=== PATIENT | male | born 1955 | race Caucasian/White ===

== ENCOUNTER → 2021-06-17 10:08 | Outpatient (CLI) | payer MEDICARE, OTHER, SELFPAY ==
--- NOTE | ~2021-06-17 | XR_ITS ---
EXAMINATION: XR toe 2nd LT min 2V INDICATION: Neuropathy with swelling of the left second toe TECHNIQUE: Three views of the left second toe are obtained. COMPARISON: 03/12/2015 FINDINGS: There is soft tissue swelling of the left second toe. No definite underlying acute osseous abnormality is identified. There is mild/moderate polyarticular arthritis of the interphalangeal join ts. No fracture is identified. IMPRESSION: 1. Soft tissue swelling of the left second toe without definite acute underlying osseous abnormality. Reviewed, dictated and finalized at location A. IMPRESSION: 1. Soft tissue swelling of the left second toe without definite acute underlyin g osseous abnormality.
== END ==
PROVIDERS: PCP Family Medicine Adolescent Medicine; Visit Provider Family Medicine Adolescent Medicine
DX: M79.89 Other specified soft tissue disorders (principal)
CPT/HCPCS: 73660

== ENCOUNTER → 2022-02-10 07:42 | Outpatient (CLI) | payer MEDICARE, SELFPAY ==
--- NOTE | ~2022-02-10 | US_ITS ---
EXAMINATION: US renal BI DATE: 02/10/2022 08:14 INDICATION: Chronic kidney disease TECHNIQUE: Multiple grayscale and Doppler ultrasound images of the kidneys were obtained. COMPARISON: 03/03/2015; CT, 03/16/2019 FINDINGS: The right kidney measures 12.7 x 7.0 x 6.7 cm. The left kidney measures 13.1 x 7.6 x 7.3 cm and contains a 5.6 cm cyst. The kidneys demonstrate normal parenchymal echogenicity. There is no hyd ronephrosis. The bladder is normal. IMPRESSION: 1. Unremarkable kidneys without hydronephrosis. Reviewed, dictated and finalized at location A.
== END ==
PROVIDERS: PCP Family Medicine Adolescent Medicine; Visit Provider Internal Medicine Nephrology
DX: N18.31 Chronic kidney disease, stage 3a (principal)
CPT/HCPCS: 76775

== ENCOUNTER 2022-02-18 02:27 | Day surgery (SDC) | payer MEDICARE, SELFPAY ==
[2022-01-15 14:38] VITALS: BMI 36.2
[2022-02-11 15:48] VITALS: BMI 36.2
[2022-02-18 11:05] VITALS: BP 183/96; PULSE 97; RESP 18; TEMP 36.4; O2SAT 99; BMI 35.4
--- NOTE | 2022-02-18 11:20 | PM.IMHP ---
H&P: HPI History of Present Illness Date/Time: 02/18/22 11:20 Chief Complaint: Neoplasia screening Narrative: this is a 66-year-old white male patient presents for neoplasia screening colonoscopy. Patient reports his current weight appetite and bowel movements are normal. He denies abdominal pain. He has had no bleeding. Last colonoscopy 10 years ago was unremarkable. Patient has been identified as having several inguinal hernias. Patient's family history is noncontributory. Patient presents today for neoplasia screening. Review of Systems Review of Systems: review of systems noncontributory. [facility] Past Medical History Medical History Normal colonoscopy 01/02 Surgical History Surgical History History of total bilateral knee replacement 2003 Family History Family History Father Cerebrovascular accident Heart disease Hypertension Mother Heart disease Diabetes mellitus Hypertension Grandparent Breast cancer Diabetes mellitus Other Colon polyp Social History Social History Smoking status: Never smoker Second hand tobacco smoke exposure: No Alcohol intake: current Alcohol use details: rarely - once every few months Substance use: never Substance use type: does not use Living arrangements: with family Gender identity (if verbalized by the patient): Male Sexual Orientation (if Verbalized by the Patient): Straight or Heterosexual Spiritual care concerns: No Agree to blood products: Yes Meds Home Medications and Allergies Home Medications Medication Instructions Recorded Confirmed Type pravastatin 40 mg tablet 40 mg PO DAILY #90 tabs 10/25/21 02/18/22 Rx aspirin 81 mg tablet,delayed 81 mg PO DAILY 12/06/21 02/18/22 History release (Adult Low Dose Aspirin) dulaglutide 1.5 mg/0.5 mL 1.5 mg subcut WEEKLY 12/06/21 02/18/22 History subcutaneous pen injector (Trulicity) dutasteride 0.5 mg capsule 0.5 mg PO DAILY 12/06/21 02/18/22 History omeprazole 40 mg capsule,delayed 40 mg PO DAILY 12/06/21 02/18/22 History release tamsulosin 0.4 mg capsule 0.4 mg PO DAILY 12/06/21 02/18/22 History metformin 500 mg tablet 1,000 mg PO BID 12/11/21 02/18/22 History carvedilol 12.5 mg tablet 12.5 mg PO BID #180 tabs 12/12/21 02/18/22 Rx chlorthalidone 25 mg tablet 25 mg PO DAILY #90 tabs 12/12/21 02/18/22 Rx fosinopril 40 mg tablet 40 mg PO DAILY #90 tabs 12/12/21 02/18/22 Rx fenofibrate 160 mg tablet 160 mg PO DAILY 01/15/22 02/18/22 History insulin lispro protamine-lispro 62 unit subcut BID 01/15/22 02/18/22 History 100 unit/mL (50-50) subcutaneous pen (Humalog Mix 50-50 KwikPen) hydrocodone 7.5 mg-acetaminophen 1 tablet PO TID PRN pain #90 tabs 01/22/22 02/18/22 Rx 325 mg tablet baclofen 20 mg tablet 20 mg PO BID #20 tabs 02/11/22 02/18/22 Rx prednisone 10 mg tablet 40 mg PO DAILY #28 tabs 02/11/22 02/18/22 Rx Allergies Allergy/AdvReac Type Severity Reaction Status Date / Time atorvastatin AdvReac Intermediate myalgia Verified 02/18/22 11:11 celecoxib AdvReac Intermediate GI upset Verified 02/18/22 11:11 glimepiride AdvReac Intermediate Palpitation Verified 02/18/22 11:11 s pioglitazone AdvReac Intermediate Edema Verified 02/18/22 11:11 prednisone AdvReac Intermediate GI upset Verified 02/18/22 11:11 Exam Narrative: Physical exam reveals patient be alert. Vital signs stable. HEENT exam is unremarkable. Patient is anicteric. Lungs are clear to auscultation and percussion. Heart is without murmur or extra sounds. Abdomen is obese. Bowel sounds are present soft nontender with no organomegaly. Digital external rectal exam is normal. Assessment and Plan Assessment and plan (1) Encounter for screening colonoscopy: Code
[2022-02-18] MEDS: LACTATED RINGERS 1,000 ML 150 ML IV CONT (11:38)
[2022-02-18 11:41] LABS: Glucose Point of Care 234 mg/dl (65-105)
--- NOTE | 2022-02-18 11:54 | WPDANESEPPF ---
Anes - Initial Pre Proc Eval Procedure: Operation Date: 02/18/22 12:30 Proposed Procedures p Screening Colonoscopy - Victorino Bowman MD Date/Time: 02/18/22 11:54 Surgeon: Victorino Bowman MD Pre Op Diagnosis: neoplasm screening Patient Data Age: 66 Gender: M Height: 1.96 m Weight: 135.4 kg Last Vital Signs Temp 97.6 F 02/18/22 11:05 Pulse 97 02/18/22 11:05 Resp 18 02/18/22 11:05 BP 183/96 H 02/18/22 11:05 Pulse Ox 99 02/18/22 11:05 O2 Del Method Room Air 02/18/22 11:05 Allergies Allergy/AdvReac Type Severity Reaction Status Date / Time atorvastatin AdvReac Intermediate myalgia Verified 02/18/22 11:11 celecoxib AdvReac Intermediate GI upset Verified 02/18/22 11:11 glimepiride AdvReac Intermediate Palpitation Verified 02/18/22 11:11 s pioglitazone AdvReac Intermediate Edema Verified 02/18/22 11:11 prednisone AdvReac Intermediate GI upset Verified 02/18/22 11:11 Home Medications Medication Instructions Recorded Confirmed Type pravastatin 40 mg tablet 40 mg PO DAILY #90 tabs 10/25/21 02/18/22 Rx aspirin 81 mg tablet,delayed 81 mg PO DAILY 12/06/21 02/18/22 History release (Adult Low Dose Aspirin) dulaglutide 1.5 mg/0.5 mL 1.5 mg subcut WEEKLY 12/06/21 02/18/22 History subcutaneous pen injector (Trulicity) dutasteride 0.5 mg capsule 0.5 mg PO DAILY 12/06/21 02/18/22 History omeprazole 40 mg capsule,delayed 40 mg PO DAILY 12/06/21 02/18/22 History release tamsulosin 0.4 mg capsule 0.4 mg PO DAILY 12/06/21 02/18/22 History metformin 500 mg tablet 1,000 mg PO BID 12/11/21 02/18/22 History carvedilol 12.5 mg tablet 12.5 mg PO BID #180 tabs 12/12/21 02/18/22 Rx chlorthalidone 25 mg tablet 25 mg PO DAILY #90 tabs 12/12/21 02/18/22 Rx fosinopril 40 mg tablet 40 mg PO DAILY #90 tabs 12/12/21 02/18/22 Rx fenofibrate 160 mg tablet 160 mg PO DAILY 01/15/22 02/18/22 History insulin lispro protamine-lispro 62 unit subcut BID 01/15/22 02/18/22 History 100 unit/mL (50-50) subcutaneous pen (Humalog Mix 50-50 KwikPen) hydrocodone 7.5 mg-acetaminophen 1 tablet PO TID PRN pain #90 tabs 01/22/22 02/18/22 Rx 325 mg tablet baclofen 20 mg tablet 20 mg PO BID #20 tabs 02/11/22 02/18/22 Rx prednisone 10 mg tablet 40 mg PO DAILY #28 tabs 02/11/22 02/18/22 Rx Laboratory Tests 02/18/22 11:31 POC Capillary Glucose 234 mg/dl H mg/dl (65-105) Patient hx anesthesia problems: none Family hx anesthesia problems: none Results Review: All pre-operative results and documents have been reviewed as part of the pre-operative evaluation. [facility], [facility] Past Medical History Medical History Normal colonoscopy 01/02 Surgical History Surgical History History of total bilateral knee replacement 2003 Family History Family History Father Cerebrovascular accident Heart disease Hypertension Mother Heart disease Diabetes mellitus Hypertension Grandparent Breast cancer Diabetes mellitus Other Colon polyp Social History Social History Smoking status: Never smoker Second hand tobacco smoke exposure: No Alcohol intake: current Alcohol use details: rarely - once every few months Substance use: never Substance use type: does not use Living arrangements: with family Gender identity (if verbalized by the patient): Male Sexual Orientation (if Verbalized by the Patient): Straight or Heterosexual Spiritual care concerns: No Agree to blood products: Yes Anes - Eval Final PreProcedure Day of Procedure 02/18/22 11:54 Patient weight: obese Heart: irregular rhythm Lungs: clear to auscultation Airway: Mallampati scale class III Neurological: alert and oriented Last oral intake: >/= 8 hours ASA classification: III Emergent: no A
[2022-02-18 12:11] VITALS: BP 121/70; PULSE 91; RESP 36; O2SAT 98
[2022-02-18 12:21] VITALS: BP 137/76; PULSE 82; RESP 19; O2SAT 100
[2022-02-18 12:31] VITALS: BP 142/70; PULSE 73; RESP 14; O2SAT 99
== END 2022-02-18 12:39 | disposition home or self-care (01) ==
PROVIDERS: PCP Family Medicine Adolescent Medicine; Visit Provider Internal Medicine Gastroenterology
PROC: 0DJD8ZZ Inspection of Lower Intestinal Tract, Via Natural or Artificial Opening Endoscopic (ICD-10-PCS; CPT 45378; principal; 2022-02-18 12:30)
DX: Z12.11 Encounter for screening for malignant neoplasm of colon (principal); K64.8 Other hemorrhoids; K57.30 Diverticulosis of large intestine without perforation or abscess without bleeding; Z79.82 Long term (current) use of aspirin; Z79.899 Other long term (current) drug therapy; Z79.84 Long term (current) use of oral hypoglycemic drugs; Z79.4 Long term (current) use of insulin; Z79.891 Long term (current) use of opiate analgesic; E66.9 Obesity, unspecified; Z68.35 Body mass index [BMI] 35.0-35.9, adult
CPT/HCPCS: G0121; 82948; J2704; J7120

== ENCOUNTER → 2022-10-30 08:09 | Outpatient (CLI) | payer MEDICARE, SELFPAY ==
--- NOTE | ~2022-10-30 | US_ITS ---
Abdominal Sonogram: Real-time sonographic imaging of the abdomen was performed. Clinical History: Abdominal pain Findings: Much of the liver obscured by bowel gas shadowing. Poor visualization of the portal vein. T he spleen is borderline enlarged. The gallbladder is probably partially distended, poorly visualized . Suspected small layering gallstones. The common bile duct measures 5 mm. The pancreas, aorta, and IVC are obscured by bowel gas shadowing. The right kidney measures 9.9 cm in length and the left kid marcos measures 11.9 cm. There is no hydronephrosis or renal calculus. Impression: Limited exam due to extensive bowel gas shadowing/patient body habitus. Suspected gallstones. Nearly nondiagnostic evaluation of the liver, as well as of the retroperitoneal structures. Reviewed, dictated and finalized at [facility]. [facility] Impression: Limited exam due to extensive bowel gas shadowing/patient body habitus. Suspected gallstones. Nearly nondiagnostic evaluation of the liver, as well as of the retroperitoneal structures.
== END ==
PROVIDERS: PCP Family Medicine Adolescent Medicine; Visit Provider Family Medicine Adolescent Medicine
DX: R10.811 Right upper quadrant abdominal tenderness (principal)
CPT/HCPCS: 76700

== ENCOUNTER 2023-01-22 12:25 | Outpatient (CLI) | payer MEDICARE, SELFPAY ==
--- NOTE | ~2023-01-22 | XR_ITS ---
EXAMINATION: XR lumbar spine 2-3V DATE: 01/22/2023 12:45 INDICATION: Low back pain TECHNIQUE: Anteroposterior and lateral views of the lumbar spine, and cone-down lateral view of the l umbosacral junction were obtained. COMPARISON: CT, 03/16/2019 FINDINGS: There are 20 degrees of lumbar levoscoliosis. Anterior interbody fusion is again noted. L3- 4. There is severe loss of intervertebral disc space height at L1-2, L4-5, and L5-S1. There is no fra cture. The vertebral body heights are maintained. There is severe facet joint osteoarthritis througho ut the lumbar spine. IMPRESSION: 1. Severe lumbar spondylosis without acute findings or significant interval change. Reviewed, dictated and finalized at location L. IMPRESSION: 1. Severe lumbar spondylosis without acute findings or significant interval tutu emelye.
--- NOTE | ~2023-01-22 | US_ITS ---
EXAMINATION: US venous doppler LE RT DATE: 01/22/2023 13:00 INDICATION: Right lower limb edema. TECHNIQUE: Grayscale ultrasound images without and with compression and Doppler ultrasound images of the right lower extremity veins were obtained. COMPARISON: None. FINDINGS: The visualized portions of right common femoral vein, profunda (deep) femoral vein, femoral vein, pop liteal vein, peroneal veins, posterior tibial veins, and greater saphenous vein outflow are patent. IMPRESSION: 1. No deep venous thrombosis. Reviewed, dictated and finalized at location A.
== END 2023-01-22 12:26 | disposition home or self-care (01) ==
LOC: ANHIMG 12:28
PROVIDERS: PCP Family Medicine Adolescent Medicine; Visit Provider Family Medicine Adolescent Medicine
DX: R60.0 Localized edema (principal); M47.896 Other spondylosis, lumbar region
CPT/HCPCS: 72100; 93971

== ENCOUNTER 2023-03-11 09:00 | Outpatient (CLI) | payer MEDICARE, SELFPAY ==
--- NOTE | ~2023-03-11 | US_ITS ---
Abdominal Sonogram: Real-time sonographic imaging of the abdomen was performed. Clinical History: IgM deficiency Findings: The liver appears echogenic, with no evidence of mass lesion or bile duct dilatation. Main portal vein demonstrates normal direction of flow. The spleen is upper limits of normal in size with out evidence of focal lesion. The gallbladder is poorly imaged. Suggestion of small gallstones. The common bile duct measures 4 mm. The pancreas, aorta, and IVC are obscured by bowel gas shadowing. T he right kidney measures 11.30 cm in length and the left kidney measures 12.6 cm. There is no hydron ephrosis or renal calculus. Left renal cyst present. Impression: Poor visualization of gallbladder, but there is suggestion of small gallstones. Probable diffuse fatty infiltration of liver. Reviewed, dictated and finalized at [facility]. Impression: Poor visualization of gallbladder, but there is suggestion of small gallstones. Probable diffuse fatty infiltration of liver.
== END 2023-03-11 09:01 | disposition home or self-care (01) ==
PROVIDERS: PCP Family Medicine Adolescent Medicine; Visit Provider Internal Medicine Hematology & Oncology
DX: D80.4 Selective deficiency of immunoglobulin M [IgM] (principal)
CPT/HCPCS: 76700

== ENCOUNTER 2023-09-28 09:28 | Outpatient (CLI) | payer MEDICARE, SELFPAY ==
[2023-09-28 09:48] LABS: Basophils Absolute Auto 0.1 K/mm3 (0.0-0.1); Basophils Percent Auto 0.8 % (0.2-1.2); Eosinophils Absolute Auto 0.1 K/mm3 (0-0.3); Eosinophils Percent Auto 1.8 % (0-4.4); Hematocrit 38.9 % (42.0-52.0); Hemoglobin 13.5 g/dL (14.0-18.0); Immature Granulocyte Absolute 0.01 K/mm3 (0.00-0.031); Immature Granulocyte Percent A 0.2 % (0-0.5); Lymphocytes Absolute Auto 1.42 K/mm3 (0.9-3.2); Lymphocytes Percent Auto 21.6 % (18.3-44.2); Mean Corpuscular HGB Conc 34.7 g/dl (32-36); Mean Corpuscular Hemoglobin 30.6 pg (26-34); Mean Corpuscular Volume 88.2 fl (80-100); Mean Platelet Volume 8.8 fl (7.4-10.4); Monocytes Absolute Auto 0.5 K/mm3 (0.1-0.6); Monocytes Percent Auto 7.9 % (2.6-8.5); Neutrophils Absolute Auto 4.5 K/mm3 (1.3-6.7); Neutrophils Percent Auto 67.7 % (45.5-73.1); Platelet Count Result 214 k/mm3 (150-375); Red Blood Count 4.41 M/mm3 (4.6-6.20); Red Cell Distribution Width 12.6 % (11.5-14.5); White Blood Count 6.6 K/mm3 (4.5-10.0)
[2023-09-28 09:54] LABS: Blood Urea Nitrogen 18 mg/dL (8-26); Carbon Dioxide 26 mmol/L (22-30); Chloride 98 mmol/L (98-109); Estimated Glomerular Filt Rate 40; Glucose 243 mg/dL (70-105); Ionized Calcium (POC) 1.16 mmol/L (1.11-1.31); Potassium 3.8 mmol/L (3.5-4.9); Sodium 138 mmol/L (138-146)
[2023-09-28 10:21] LABS: Alanine Aminotransferase 17 U/L (6-50); Albumin Level 3.8 g/dL (3.5-5.1); Alkaline Phosphatase 64 U/L (38-126); Anion Gap 8 mmol/L (8-16); Aspartate Amino Transferase 29 U/L (17-59); Bilirubin,Total 0.8 mg/dL (0.2-1.3); Blood Urea Nitrogen 19 mg/dL (9-20); Calcium 8.9 mg/dL (8.4-10.2); Carbon Dioxide 27 mmol/L (22-30); Chloride 100 mmol/L (98-107); Estimated Glomerular Filt Rate 43; Glucose 245 mg/dL (65-110); Potassium 3.8 mmol/L (3.4-5.0); Sodium 135 mmol/L (137-145)
== END 2023-09-28 09:29 | disposition home or self-care (01) ==
LOC: ANHLAB 09:30
PROVIDERS: PCP Family Medicine Adolescent Medicine; Visit Provider Internal Medicine Hematology & Oncology
DX: D80.4 Selective deficiency of immunoglobulin M [IgM] (principal)
CPT/HCPCS: 36415; 80047; 80053; 85025

== ENCOUNTER 2024-09-29 09:38 | Outpatient (CLI) | payer MEDICARE, SELFPAY ==
--- OUTSIDE RECORDS SUMMARY | 2024-09-29 09:47 | XMS_ITS | Clinical Summary ---
Author Organization [facility] Address [address] [place] [phone] Phone Care Team Providers Care Tooling Specialist Name Role Phone Magno Marr MD Primary Care Provider [phone] Allergies Active Allergy Reactions Criticality Noted Date Comments Baclofen nausea High 03/06/2022 Canagliflozin Headache Low 02/02/2020 Prednisone nausea High 03/06/2022 Medications Medication Sig Dispensed Refills Start Date End Date Status ascorbic acid (VITAMIN C) 1000 MG tablet Take 1,000 mg by mouth daily Active aspirin (ST JARON) 81 MG EC tablet 81 mg 06/15/2007 Active Blood Glucose Calibration (OT ULTRA/FASTTK CNTRL SOLN) solution Use to test blood sugars 3 times a day 09/07/2018 Active Blood Glucose Monitoring Suppl (ONE TOUCH ULTRA MINI) w/Device kit Use to test blood sugars 3 times a day 09/07/2018 Active Cholecalciferol 50 MCG (1999 UT) capsule 2,000 Units Active coenzyme Q-10 100 MG capsule Take 100 mg by mouth daily Active Dulaglutide (Trulicity) 1.5 MG/0.5ML solution pen-injector INJECT 0.5-ML (1.5 MG TOTAL) UNDER THE SKIN ONCE A WEEK 12/18/2021 Active dutasteride (AVODART) 0.5 MG capsule Take 0.5 mg by mouth daily Active fenofibrate (Tricor) 145 MG tablet 145 mg 06/29/2007 Active glucose blood (OneTouch Ultra) test strip USE DIRECTED TO TEST BLOOD SUGAR THREE TIMES DAILY 12/03/2021 Active HYDROcodone-acetami nophen (NORCO) 7.5-325 MG per tablet Take 1 tablet by mouth 3 (three) times a day if needed for pain 12/27/2021 Active HumaLOG MIX 50/50 KWIKPEN (50-50) 100 UNIT/ML inj pen ADMINISTER 62 UNITS UNDER THE SKIN TWICE DAILY BEFORE BREAKFAST AND LUNCH 01/01/2022 Active Insulin Pen Needle (B-D ULTRAFINE III SHORT PEN) 31G X 8 MM misc 2 (two) times a day 10/10/2020 Active Lancets (OneTouch Delica Plus [id number]) misc USE TO TEST THREE TIMES DAILY 04/08/2021 Active metFORMIN (FORTAMET) 500 MG 24 hr tablet Take two tablets twice daily. 11/14/2021 Active omeprazole (PriLOSEC) [address] capsule Take 40 mg by mouth daily Active pravastatin (PRAVACHOL) 40 MG tablet Take 40 mg by mouth 1 (one) time each day 10/24/2021 Active tamsulosin (FLOMAX) 0.4 MG 24 hr capsule 0.4 mg daily Active thiamine (VITAMIN B-1) 100 MG tablet Take 100 mg by mouth daily Active carvedilol (COREG) 12.5 MG tablet Take 1 tablet (12.5 mg total) by mouth 2 (two) times a day with meals 180 tablet 3 01/27/2022 Active fosinopril (MONOPRIL) 40 MG tablet Take 1 tablet (40 mg total) by mouth 1 (one) time each day 90 tablet 3 06/16/2022 Active chlorthalidone (HYGROTON) 50 MG tablet Take 1 tablet (50 mg total) by mouth 1 (one) time each day 90 tablet 3 07/30/2022 Active Active Problems Problem Noted Date Diagnosed Date Chronic kidney disease stage 3A 07/30/2022 Hyperlipidemia 01/28/2018 Overview (01/22/2022): Last Assessment & Plan: Chronic problem. On statin therapy, no changes. Hypertensive disorder 01/28/2018 Overview (01/22/2022): Last Assessment & Plan: Not at goal on recheck also. He is supposed to meet with nephrology in 1-2 weeks and they have historically managed. If this appointment gets canceled, then he will let us know and we will adjust his medications until he can get into a new kidney doctor. Probably will add low dose amlodipine if this is the case. Type 2 diabetes mellitus 01/07/2014 Overview (01/22/2022): DMII WO CMP UNCNTRLD Last Assessment & Plan: Chronic problem, not at goal due to missing medications. Prescriptions updated and sent today, let us know if any further issues. He will work on taking aD HL dose consistently. Reviewed foot care. Update routine labs today. Immunizations Name Administration Dates Next Due Influenza TIV (IM) 06/17/2022 Pneumococcal Conjugate 11/04/2019 Family History Medical History Relation Comments End stage renal disease Mother Relation Status Comments Mother Social History Tobacco Use Types Packs/Day Years Used Date Smoking Tobacco: Never Smokeless Tobacco: Never Alcohol Use Standard Drinks/Week Comments Yes 0 (1 standard drink = 0.6 oz pur e alcohol) rare Sex and Gender Information Value Date Recorded Sex Assigned at Not on file Gender Identity Not on file Sexual Orientation Not on file Last Filed Vital Signs Vital Sign Reading Time Taken Comments Blood Pressure 136/70 07/30/2022 8:43 AM DOCUMENTATION NURSE Pulse 72 07/30/2022 8:43 AM DOCUMENTATION NURSE Temperature 36.8 C (98.2 F) 07/30/2022 8:43 AM DOCUMENTATION NURSE Respiratory Rate - - Oxygen Saturation - - Inhaled Oxygen Concentration - - Weight 138 kg (305 lb) 07/30/2022 8:43 AM DOCUMENTATION NURSE Height 195.6 cm (6' 5 ) 07/30/2022 8:43 AM DOCUMENTATION NURSE Body Mass Index 36.17 07/30/2022 8:43 AM DOCUMENTATION NURSE Plan of Treatment Health Maintenance Due Date Last Done Comments Pneumococcal PPSV23/PCV13 65 + Years / High and Highest Risk (1 of 4 - PCV) 11/28/1959 Diabetic Foot Exam 11/28/1963 Ophthalmology Exam 11/28/1963 Influenza Vaccine (#1) 2024 06/17/2022 Care Teams Tooling Specialist Relationship Specialty Start Date End Date Magno Marr MD [phone] [phone] PCP - General Family Medicine 12/12/21
--- OUTSIDE RECORDS SUMMARY | 2024-09-29 09:47 | XMS_ITS | Referral Summary ---
Author Organization [id number] [address] Address [address] [place] [address] Care Team Providers Care Account Development Manager Name Role Phone Magno Thompson MD Primary Care Prov ider Jaci Dickinson MD Unavailable Khang Robledo OD Unavailable [phone] Victorino Richter OD Unavailable Allergies Active Allergy Reactions Criticality Noted Date Comments Baclofen Nausea only,Nausea A nd Vomiting High 03/06/2022 Canagliflozin Headache Low 02/02/2020 Perflutren Lipid Microspheres Joint pain Low 01/28/2024 Prednisone Nausea only,Nausea A nd Vomiting High 03/06/2022 Rosuvastatin Muscle pain Medium 06/06/2024 Weakness Medications fosinopril (MONOPRIL) 40 mg tablet Take one by mouth one time per day 0 0 06/29/20 07 Active Additional Information Patient taking differently:40 mgoral, 1/2 tab in the morning and 1/2 tab in the evening, Reported on 06/22/2023 aspirin (ASPIR-81) 81 mg tablet Take one by mouth one time per day 0 0 06/15/20 07 Active dutasteride (AVODART) 0.5 mg capsuleIndicati ons:benign prostatic hyperplasia with lower urinary tract sx Take 1 capsule (0.5 mg total) by mouth daily Active tamsulosin (FLOMAX) 0.4 mg extended release capsule 1 capsule (0.4 mg total) daily Active omeprazole (PriLOSEC) 40 mg capsule Take 1 capsule (40 mg total) by mouth daily Active cholecalciferol (VITAMIN D-3) 2,000 unit capsule 1 capsule (2,000 Units total) Active coenzyme Q10 100 mg capsule Take 1 capsule (100 mg total) by mouth daily Active thiamine (VITAMIN B1) 100 mg tablet Take 1 tablet (100 mg total) by mouth daily Active HYDROcodone-kavon taminophen (NORCO) 7.5-325 mg per tabletIndicatio ns:Pain Take 1 tablet by mouth every 8 (eight) hours as needed 0 04/29/20 18 Active fenofibrate (TRIGLIDE) 160 mg tablet 09/07/19 22 Active carvediloL (COREG) 25 mg tablet Take 0.5 tablets (12.5 mg total) by mouth 2 (two) times a day with meals 08/21/20 22 Active chlorthalidone 50 mg tablet 07/30/20 22 Active ketoconazole (NIZORAL) 2 % cream APPLY TOPICALLY TO THE AFFECTED AREA TWICE DAILY 03/24/20 23 Active multivitamin-mi nerals-lutein tablet Take 1 tablet by mouth daily Active coenzyme [id number] 100-5 mg-unit capsule Take 100 mg by mouth daily Active insulin lispro protamine-insul in lispro 50/50 (HumaLOG 50/50 100 unit/mL) 100 unit/mL pen for injectionIndica tions:Type 2 diabetes mellitus with hyperglycemia, with long-term current use of insulin (HCC) INJECT 55 UNITS BEFORE BREAKFAST & 35 UNITS BEFORE DINNE 105 mL 3 08/13/20 23 Active dulaglutide (TRULICITY) 1.5 mg/0.5 mL pen injectorIndicat ions:type 2 diabetes mellitus Inject 0.5 mL (1.5 mg total) under the skin once a week 6 mL 3 02/16/20 24 025 Active flash glucose sensor (FreeStyle Gabi 2 Sensor) kit CHANGE SENSOR EVERY 2 WEEKS 6 kit 3 02/22/20 24 Active atorvastatin (LIPITOR) 20 mg tablet Take 1 tablet (20 mg total) by mouth daily 06/06/20 24 Active chlorthalidone (HYGROTON) 25 mg tablet Take 2 tablets (50 mg total) by mouth daily 06/14/20 24 Active metFORMIN XR (GLUCOPHAGE XR) 500 mg 24 hr tabletIndicatio ns:Type 2 diabetes mellitus with hyperglycemia, with long-term current use of insulin (HCC) TAKE TWO TABLETS BY MOUTH TWICE DAILY 360 tablet 3 09/26/19 25 Active metFORMIN XR (GLUCOPHAGE XR) 500 mg 24 hr tablet TAKE TWO TABLETS BY MOUTH TWICE DAILY 360 tablet 3 08/26/19 24 025 Discontinued Active Problems Problem Noted Date Diagnosed Date Class 2 severe obesity due t o excess calories with serious comorbidity and body mass index (BMI) of 35.0 to 35.9 in adult 02/16/2024 Assessment & Plan (02/16/2024 9:47 AM CDT): Discussed healthy diet and importance of regular physical activity (20- 30min/day, 150min/wk). Has been unable to obtain his Trulicity in 1 mo. Sent in lower dose. Chronic kidney disease in type 2 diabetes [facility] 06/22/2023 Assessment & Plan (06/14/2024 9:50 AM CDT): Chronic problem. Managed by Dr Cruz Wu; sees him every 6 mos. Nephropathy: On KAVON-I / ARB s : Yes. Fosinopril 20mg bid. Last MA: 07/22/23 Last creat/GFR: 07/22/23 GFR=44, CR=1.67 Assessment & Plan (02/16/2024 10:09 AM CDT): Chronic problem. Managed by Dr Cruz Wu; sees him every 6 mos. JUN 3002/2024. Last creat/GFR: 07/22/23 GFR=44, CR=1.67. Assessment & Plan (10/12/2023 9:52 AM DATA REVIEW SPECIALIST): Chronic problem. Managed by Dr Cruz Wu; sees him every 6 mos. Last creat/GFR: 07/22/23 GFR=44, CR=1.67. Assessment & Plan (06/22/2023 10:31 AM CDT): Chronic problem. Managed by Dr Cruz Wu. Morbid (severe) obesity due to excess calories 0 09/09/2022 Hyperlipidemia associated with type 2 diabetes deanne soriano 01/28/2018 Assessment & Plan (06/14/2024 9:58 AM CDT): Chronic problem. Currently taking Atorvastatin 20mg & fenofibrate 160mg. Last lipid panel: 07/22/23 LDL=81, TY=562. Rosuvastatin caused muscle weakness. Assessment & Plan (02/16/2024 9:58 AM CDT): Chronic problem. Currently taking Rosuvastatin 20mg & fenofibrate 160mg. Last lipid panel: 07/22/23 LDL=81, ED=364. Assessment & Plan (10/12/2023 9:37 AM DATA REVIEW SPECIALIST): Chronic problem. Currently taking Pravastatin 40mg & fenofibrate 160mg. Last lipid panel: 07/22/23 LDL=81, AS=815. Assessment & Plan (06/22/2023 10:17 AM CDT): Chronic problem. Controlled on current Pravastatin 40mg & fenofibrate 160mg. Last lipid panel: 03/06/22 LDL=69, UL=488. Will update labs. Verified that he uses [employer]. Aware to check results/results letter in [employer]. Will contact by phone if needed. Assessment & Plan (09/09/2022 10:39 AM DATA REVIEW SPECIALIST): Chronic, well controlled Low fat Low cholesterol diet Exercise Continue statin therapy with Pravastatin Assessment & Plan (06/05/2022 9:45 AM CDT): Chronic problem. On statin therapy, no changes. Assessment & Plan (03/06/2022 1:50 PM CDT): Chronic problem. On statin therapy, no changes. Assessment & Plan (11/14/2021 11:53 AM CDT): Chronic problem. On statin therapy, no changes. Assessment & Plan (04/11/2021 9:43 AM CDT): At goal on current medications. Continue statin therapy. Assessment & Plan (12/13/2020 9:48 AM CDT): LDL 88. Continue statin therapy. Assessment & Plan (08/09/2020 1:41 PM DATA REVIEW SPECIALIST): Goal of treatment , LDL cholesterol less than 100 ( less than 70 in patients with history of heart attacks and / or strokes ) NonHDL cholesterol ( total cholesterol minus HDL cholesterol ) goal less than 130 ( less than 100 in patients with history of heart attacks and / or strokes ) Low cholesterol, low fat diet was discussed and advised. Daily exercise On statin therapy Assessment & Plan (05/03/2020 2:24 PM CDT): At goal on current medications. Continue statin therapy. Assessment & Plan (02/02/2020 1:50 PM CDT): Continue current medication. Will check lipids NOV. Needs to be compliant with diet as well. Assessment & Plan (09/27/2019 12:26 PM DATA REVIEW SPECIALIST): Goal of treatment , LDL cholesterol less than 100 ( less than 70 in patients with history of heart attacks and / or strokes ) NonHDL cholesterol ( total cholesterol minus HDL cholesterol ) goal less than 130 ( less than 100 in patients with history of heart attacks and / or strokes ) Low cholesterol, low fat diet was discussed and advised. Daily exercise On statin therapy and Gemfibrozil Assessment & Plan (05/24/2019 11:25 AM CDT): Goal of treatment , LDL cholesterol less than 100 ( less than 70 in patients with history of heart attacks and / or strokes ) NonHDL cholesterol ( total cholesterol minus HDL cholesterol ) goal less than 130 ( less than 100 in patients with history of heart attacks and / or strokes ) Low cholesterol, low fat diet was discussed and advised. Daily exercise On statin therapy with Pravachol Assessment & Plan (02/18/2019 2:56 PM CDT): Check lipid panel. Assessment & Plan (11/18/2018 1:23 PM CDT): Goal of treatment , LDL cholesterol less than 100 ( less than 70 in patients with history of heart attacks and / or strokes ) NonHDL cholesterol ( total cholesterol minus HDL cholesterol ) goal less than 130 ( less than 100 in patients with history of heart attacks and / or strokes ) Low cholesterol, low fat diet was discussed and advised. Daily exercise On statin therapy Assessment & Plan (08/18/2018 3:11 PM DATA REVIEW SPECIALIST): At goal on current medications. Assessment & Plan (05/13/2018 3:23 PM CDT): Continue statin therapy Assessment & Plan (01/28/2018 10:44 AM CDT): Goal of treatment , LDL cholesterol less than 100 ( less than 70 in patients with history of heart attacks and / or strokes ) NonHDL cholesterol ( total cholesterol minus HDL cholesterol ) goal less than 130 ( less than 100 in patients with history of heart attacks and / or strokes ) Low cholesterol, low fat diet was discussed and advised. Daily exercise On statin therapy Hypertension associated with diabetes 01/28/2018 Assessment & Plan (06/14/2024 9:50 AM CDT): Chronic problem. Controlled on current Fosinopril 20mg bid, carvedilol 25mg bid, chlorthalidone 50mg daily Assessment & Plan (02/16/2024 9:37 AM CDT): Chronic problem. Controlled on current Fosinopril 20mg bid, carvedilol 25mg bid, chlorthalidone 50mg daily Assessment & Plan (10/12/2023 9:38 AM DATA REVIEW SPECIALIST): Chronic problem. Controlled on current Fosinopril 20mg bid, carvedilol 25mg bid, chlorthalidone 50mg daily Assessment & Plan (06/22/2023 10:16 AM CDT): Chronic problem. Controlled on current Fosinopril 20mg bid, carvedilol 25mg bid, chlorthalidone 50mg daily Will update labs. Verified that he uses [employer]. Aware to check results/results letter in [employer]. Will contact by phone if needed. Assessment & Plan (09/09/2022 10:39 AM DATA REVIEW SPECIALIST): Chronic, well controlled Importance of low salt diet and exercise were discussed Continue current meds, including Fosinopril Assessment & Plan (06/05/2022 9:53 AM CDT): Chronic problem, improved on recheck. No medication changes. Assessment & Plan (03/06/2022 1:59 PM CDT): Close to goal, and being managed by new sheet metal operator. No changes. Assessment & Plan (11/14/2021 11:53 AM CDT): Not at goal on recheck also. He is supposed to meet with nephrology in 1-2 weeks and they have historically managed. If this appointment gets canceled, then he will let us know and we will adjust his medications until he can get into a new kidney doctor. Probably will add low dose amlodipine if this is the case. Assessment & Plan (04/11/2021 9:44 AM CDT): Controlled on current medications. Continue plan. Assessment & Plan (12/13/2020 9:47 AM CDT): Advised to take meds once home. Monitor home BP. Goals reviewed. Assessment & Plan (08/09/2020 1:41 PM DATA REVIEW SPECIALIST): Goal blood pressure is less than 140/85 Low salt diet was discussed andd recommended The importance of daily aerobic exercise was also emphasized. Continue current meds, including KAVON-I or ARB, e.g. Needs microalbumin Assessment & Plan (05/03/2020 2:24 PM CDT): Controlled on current medications. Continue plan. Assessment & Plan (02/02/2020 1:50 PM CDT): Controlled on current medications. Continue plan. Assessment & Plan (09/27/2019 12:27 PM DATA REVIEW SPECIALIST): Goal blood pressure is less than 140/85 Low salt diet recommended Daily aerobic exercise Continue current meds, including KAVON-I or ARB Invokana might help also with BG lowering. Assessment & Plan (05/24/2019 11:25 AM CDT): Goal blood pressure is less than 140/85 Low salt diet recommended Daily aerobic exercise Continue current meds, including KAVON-I or ARB Assessment & Plan (02/18/2019 2:56 PM CDT): Controlled on current medications. Assessment & Plan (08/18/2018 3:11 PM DATA REVIEW SPECIALIST): Controlled on current medications. Assessment & Plan (05/13/2018 3:23 PM CDT): Continue follow up with Dr. Madrid. Check occasional home BP. Assessment & Plan (01/28/2018 10:45 AM CDT): Goal blood pressure is less than 140/85 Low salt diet recommended Daily aerobic exercise Continue current meds, including KAVON-I or ARB Diabetic polyneuropathy asso ciated with type 2 diabetes mellitus ([facility]) 12/03/2017 Assessment & Plan (06/14/2024 9:50 AM CDT): Chronic problem. Aware to check feet nightly & not to go barefoot. Assessment & Plan (02/16/2024 9:38 AM CDT): Chronic problem. Aware to check feet nightly & not to go barefoot. Assessment & Plan (10/12/2023 9:38 AM DATA REVIEW SPECIALIST): Chronic problem. Aware to check feet nightly & not to go barefoot. Assessment & Plan (06/22/2023 10:29 AM CDT): Chronic problem. Aware to check feet nightly & not to go barefoot. Assessment & Plan (09/09/2022 10:39 AM DATA REVIEW SPECIALIST): Foot care discussed Assessment & Plan (01/28/2018 10:43 AM CDT): Your Hba1c today was: Lab Results Component Value Date HGBA1C 7.1 01/28/2018 meaning a 3 month average sugar of : 150 Your goal hba1c is under 7.0 to prevent superintendent container terminal diabetes complications ( eye , kidney and nerve damage ) . Your goal sugars are in the 90-130 range Daily aerobic ( walking, riding a bike, swimming ) and resistance exercises ( light weight lifting, resistance band stretching ) for at least 30 minutes is recommended If you can not walk, chair exercises is very acceptable. As little as 15-20 minutes exercise , in one or two sessions a day, is still very helpful and will help to improve your diabetes control . Eat small portion meals, no more than 1800 calories Diet Try to eat not more than than 2-3 servings of carbs ( starches ) wiith your meals. Avoid soft drinks, including regular sodas , fruit juices and sweetened tea. Drink water instead. Eat plenty of green and leafy vegetables, including salads. Take your medications regularly,including your insulin injections. Monitor your sugar levels with finger sticks regularly and keep a log sheet or book. Bring your sugar meter and /or a log book or log sheet to every office visit. Lower Humalog 50/50 To 60 u before breakfast and dinner Increase Ozempic to 1 mg weekly Assessment & Plan (12/03/2017 10:51 AM CDT): Foot care discussed Type 2 diabetes mellitus wit h hyperglycemia, with long-term current use of insulin 01/07/2014 Overview (2016): DMII WO CMP UNCNTRLD Assessment & Plan (06/14/2024 9:57 AM CDT): Chronic problem. A1c improved from 7.7% 02/16/24 to now 7.3%. persistent highs during daytime hours. -Increase morning humalog from 55 to 60 units. Current medications: Metformin XR 1000mg twice daily with meals Trulicity 1.5 mg weekly Humalog 50/50 60units every morning & 35 units after dinner UTD on labs. UTD on DM eye exam (08/2023 [facility]). Strive for regular exercise (30min most days) and diet (get at least 4-5 servings of fruit and veggies daily, avoid processed foods, increase lean protein intake and decrease carb portions as well as fruit juices, regular soda & desserts). Watch carbs and simple sugars. Check the blood sugar: Freestyle gabi 2. Check the feet daily for skin breakdown and infection. Assessment & Plan (02/16/2024 9:57 AM CDT): Chronic problem. A1c worsened from 7.2% 10/12/23 to now 7.6% has been unable to obtain Trulicity since 01/08/24. Will send in lower dose (1.5mg weekly) as that should be in stock. He will call if unable to obtain. Current medications: Metformin 1000mg twice daily with meals Trulicity 1.5mg weekly Humalog 50/50 55 units every morning & 35 units after dinner UTD on labs. UTD on DM eye exam (08/2023 [facility]). Strive for regular exercise (30min most days) and diet (get at least 4-5 servings of fruit and veggies daily, avoid processed foods, increase lean protein intake and decrease carb portions as well as fruit juices, regular soda & desserts). Watch carbs and simple sugars. Check the blood sugar: Freestyle gabi 2. Check the feet daily for skin breakdown and infection. Assessment & Plan (10/12/2023 9:57 AM DATA REVIEW SPECIALIST): Chronic problem. A1c near goal; improved from 7.6% 06/22/23 to now 7.2% Not enough data on FSL to look at. Instructed to scan before bed, when he gets up & before meals. Showed him download & lack of data. Current medications: Metformin 1000mg twice daily with meals Trulicity 1.5 or 3mg weekly Humalog 50/50 55 units every morning & 35 units after dinner UTD on labs. UTD on DM eye exam (08/2023 [facility]). Scheduled again 11/2023. Strive for regular exercise (30min most days) and diet (get at least 4-5 servings of fruit and veggies daily, avoid processed foods, increase lean protein intake and decrease carb portions as well as fruit juices, regular soda & desserts). Watch carbs and simple sugars. Check the blood sugar: Freestyle gabi 2. Check the feet daily for skin breakdown and infection. Assessment & Plan (06/22/2023 10:34 AM CDT): Chronic problem. A1c near goal at 7.6%; increased from 7.3% 08/2022 Discussed increasing morning dose every week if blood sugar staying over 150. 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 Current medications: Metformin 1000mg twice daily with meals Trulicity 1.5 or 3mg weekly Humalog 50/50 55 units every morning & 35 units after dinner Will update labs. Verified that he uses [employer]. Aware to check results/results letter in [employer]. Will contact by phone if needed. Please call to reschedule your diabetic eye exam. Strive for regular exercise (30min most days) and diet (get at least 4-5 servings of fruit and veggies daily, avoid processed foods, increase lean protein intake and decrease carb portions as well as fruit juices, regular soda & desserts). Watch carbs and simple sugars. Check the blood sugar twice daily. Check the feet daily for skin breakdown and infection. Assessment & Plan (09/09/2022 10:41 AM DATA REVIEW SPECIALIST): Hba1c was Lab Results Component Value Date HGBA1C 7.3 09/09/2022 today, indicating suboptimal DM control Goal Hba1c and blood glucose explained Diet and exercise were advised Prevention and treatment of hyypoglcyemia were discussed with the patient Blood glucose monitoring : cgm with FSL Adjustment to medications: Increase Trulicity 3 mg weekly Continue Humalog 50/50 at current dose Assessment & Plan (06/05/2022 9:49 AM CDT): Chronic problem, significantly improving but not at goal with hypoglycemia. Continue same morning dose but lower evening dose to 30 units. Discussed how to lower by 5 units at a time if needed for persistent lows which he's comfortable doing. Assessment & Plan (03/06/2022 1:57 PM CDT): Chronic problem, not at goal. Will try starting a lower dose of 30 units at dinner so he is comfortable taking his second dose of HL 50/50. Also start Freestyle Gabi today. Assessment & Plan (11/14/2021 12:37 PM CDT): Chronic problem, not at goal due to missing medications. Prescriptions updated and sent today, let us know if any further issues. He will work on taking aD HL dose consistently. Reviewed foot care. Update routine labs today. Assessment & Plan (04/11/2021 4:12 PM CDT): A1c 6.7. Despite not seeing hypoglycemia on past 5 months BG log, will recommend reducing insulin to 60 units twice a day. Try not to go more than 5-6 hours between meals to prevent hypoglycemia. Recommend that he take metformin at [facility] if necessary as this is on $4 list. Assessment & Plan (12/13/2020 9:50 AM CDT): A1c 6.3. No change to medication plan. Advised to eat 3 meals. No candy bars. BG goals reviewed. Foot care reviewed. Recommend follow up with manager of software development. Assessment & Plan (08/09/2020 1:42 PM DATA REVIEW SPECIALIST): Hba1c was Lab Results Component Value Date HGBA1C 6.2 08/09/2020 today, indicating Adequate DM control Goal blood sugars in the 120-150 range , with Hb1c under 7.0 % was explained 1800 calorie, consistent carb diet recommended. No more than 30-45 grams of carbs per meal recommended, as well as avoiding high concentrated sweet drinks . 25-45 min daily exercise, combining both aerobic and resistance exercise recommended. The need to monitor blood glucose before meals and bedtime was discussed. Prevention and treatment of hyypoglcyemia discussed. Assessment & Plan (05/03/2020 2:26 PM CDT): A1c 6.8. Reduce insulin to 60 units twice a day and increase Trulicity to 1.5 weekly. Advised to not skip lunch as this is contributing to reported after sx of hypoglycemia. Encouraged more compliance with diet and exercise. Assessment & Plan (02/02/2020 1:51 PM CDT): A1c increased to 7.1. He wants to work on diet and exercise. If not improved NOV, will increase Trulicity. BG and A1c goals discussed. Assessment & Plan (09/27/2019 12:26 PM DATA REVIEW SPECIALIST): Hba1c was Lab Results Component Value Date HGBA1C 6.8 09/27/2019 today, indicating adequate DM control 1800 calorie, consistent carb diet recommended. No more than 30-45 grams of carbs per meal recommended, as well as avoiding high concentrated sweet drinks . 25-45 min daily exercise, combining both aerobic and resistance exercise recommended. The need to monitor blood glucose before meals and bedtime was discussed. Prevention and treatment of hyypoglcyemia discussed. Start Invokana Lower Humalog 50/50 if BG start dropping under 100 Assessment & Plan (05/24/2019 11:25 AM CDT): Hba1c was Lab Results Component Value Date HGBA1C 7.5 05/24/2019 today, indicating sub-optimal DM control 1800 calorie, consistent carb diet recommended. No more than 30-45 grams of carbs per meal recommended, as well as avoiding high concentrated sweet drinks . 25-45 min daily exercise, combining both aerobic and resistance exercise recommended. The need to monitor blood glucose before meals and bedtime was discussed. Prevention and treatment of hyypoglcyemia discussed. Insulin dose: Continue current insulin regimen, along with Bydureon and Metformin Assessment & Plan (02/18/2019 2:55 PM CDT): A1c 7.0 . Increase each dose of Humalog to 62 units. Advised to check BG fasting and ac dinner. BG goals reviewed. Advised to send in log so that pattern can be evaluated. Assessment & Plan (11/18/2018 1:23 PM CDT): Your Hba1c today was: Lab Results Component Value Date HGBA1C 7.2 11/18/2018 meaning a 3 month average sugar of : 154 Your goal hba1c is under 7.0 to prevent residential diabetes complications ( eye , kidney and nerve damage ) . Your goal sugars are in the 90-130 range Daily aerobic ( walking, riding a bike, swimming ) and resistance exercises ( light weight lifting, resistance band stretching ) for at least 30 minutes is recommended If you can not walk, chair exercises for 10-15 min a day would help tremendously. As little as 15-20 minutes exercise , in one or two sessions a day, is still very helpful to improve your diabetes control . Eat small portion meals, trying not to consume no more than 1800 calories a day . Try to eat not more than than 3 servings of carbs ( starches ) wiith your meals. Avoid soft drinks, including regular sodas , fruit juices and sweetened tea. Drink water instead. Eat plenty of green and leafy vegetables, including salads. Take your medications regularly. Setting phone alarms can help . Keep your medication on the kitchen dinner table, by the bedside table or by the sink where they are visible to you. The insulin that you are currently using does not need to be refrigerated. Keep it where you can see it . Monitor your sugar levels with finger sticks regularly and keep a log sheet or book. Bring your sugar meter and /or a log book or log sheet to every office visit. For sugars under 130 at bedtime, have a 15 grams carb snacks, e.g. Turnkey sandwich, Some peanut butter crackers or cheese. See a foot Assessment & Plan (08/18/2018 3:10 PM DATA REVIEW SPECIALIST): A1c 7.3. Some variation in BG is d/t not always taking insulin at correct times. Take your insulin with breakfast and with dinner. Advised to check hs BG. If < 150 eat snack. Action of insulin discussed and BG reviewed. Assessment & Plan (05/13/2018 3:22 PM CDT): A1c 6.7 without hypoglycemia. Continue Ozempic 1 mg, same dose Humalog mix. BG goals reviewed. Assessment & Plan (12/03/2017 10:51 AM CDT): Your Hba1c today was: Lab Results Component Value Date HGBA1C 8.0 12/03/2017 meaning a 3 month average sugar of : 180 Your goal hba1c is under 7.0 to prevent residential diabetes complications ( eye , kidney and nerve damage ) . Your goal sugars are in the 90-130 range Daily aerobic ( walking, riding a bike, swimming ) and resistance exercises ( light weight lifting, resistance band stretching ) for at least 30 minutes is recommended If you can not walk, chair exercises is very acceptable. As little as 15-20 minutes exercise , in one or two sessions a day, is still very helpful and will help to improve your diabetes control . Eat small portion meals, no more than 1800 calories Diet Try to eat not more than than 2-3 servings of carbs ( starches ) wiith your meals. Avoid soft drinks, including regular sodas , fruit juices and sweetened tea. Drink water instead. Eat plenty of green and leafy vegetables, including salads. Take your medications regularly,including your insulin injections. Monitor your sugar levels with finger sticks regularly and keep a log sheet or book. Bring your sugar meter and /or a log book or log sheet to every office visit. Take you Humalog 50/50 , 60 units in the morning before breakfast and 70 units before dinner. Take Metformin 1000 mg twice a day with meals. Start Ozempic, 0.25 mg once a week for 4 weeks, then continue with 0.5 mg weekly, on ( it is ok to take it during the next 3 days if you forgot ) . Resolved Problems Problem Noted Date Diagnosed Date Resolved Date Morbid obesity 12/03/2017 01/28/2018 BMI 40.0-44.9, adult 12/03/2017 018 Social History Tobacco Use Types Packs/Day Years Used Date Smoking Tobacco: Never Smokeless Tobacco: Never Alcohol Use Standard Drinks/Week Comments No 0 (1 standard drink = 0.6 oz pur e alcohol) PHQ-2 Answer Date Recorded PHQ-2 Total Score (If total score is 3 or more points, staff should administer the PHQ-9) 0 04/11/2021 Personal Safety Answer Date Recorded Getting School Help Needed Not on file 08/05 Sex and Gender Information Value Date Recorded Sex Assigned at Not on file Legal Sex Male 12:30 AM DATA REVIEW SPECIALIST Gender Identity Male 12/11/2023 3:15 PM CDT Sexual Orientation Straight 12/11/2023 3: 15 PM CDT Last Filed Vital Signs Vital Sign Reading Time Taken Comments Blood Pressure 118/66 06/14/2024 10:01 AM CDT Pulse 78 06/14/2024 9:21 AM CDT Temperature 36.7 C (98 F) 12/24/2022 1:36 PM CDT Respiratory Rate 18 06/14/2024 9:21 AM CDT Oxygen Saturation 100% 12/24/2022 7:18 PM CDT Inhaled Oxygen Concentration - - Weight 137.9 kg (304 lb) 06/14/2024 9:21 AM CDT Height 195.6 cm (6' 5.01 ) 06/14/2024 9:21 AM CD T Body Mass Index 36.04 06/14/2024 9:21 AM CDT Plan of Treatment Not on file Procedures Procedure Name Priority Date/Time Associated Diagnosis Comments POCT HEMOGLOBIN A1C Routine 06/14/2024 9 :24 AM CDT Type 2 diabetes mellitus with hyperglycemia, with long-term current use of insulin (HCC) DIABETES EYE EXAM Routine 09/15/2023 COMPREHENSIVE METABOLIC PANEL Routine 07/22/2023 2:02 PM DATA REVIEW SPECIALIST LIPID PANEL Routine 07/22/2023 2:02 PM DATA REVIEW SPECIALIST ALBUMIN CREATININE RATIO, URINE Routine 07/22/2023 2:02 PM DATA REVIEW SPECIALIST from Last 3 Months or Most Recently Relevant to Health Maintenance Results * (ABNORMAL) POCT hemoglobin A1c (06/14/2024 9:24 AM CDT) Hemoglobin A1C, POC 7.3 4.0 - 5.6 % Blood 06/14/2024 9:24 AM CDT Ivonne Worley NP POINT OF CARE TEST ORDERA BLES Final Result * (ABNORMAL) DIABETES EYE EXAM (09/15/2023) 09/15/2023 Historical Provider HEALTH MAINTENANCE Edited Result - Final * Albumin Creatinine Ratio, Urine (07/22/2023 2:02 PM DATA REVIEW SPECIALIST) Creatinine, ur 84 20 - 320 mg/dL [facility] Microalbumin, ur <0.2 See Note: mg/dL [facility] Comment: Reference Range: Reference Range Not established Microalbumin/creat ratio NOTE <30 mcg/mg creat [facility] Comment: NOTE: The urine albumin value is less than 0.2 mg/dL therefore we are unable to calculate excretion and/or creatinine ratio. The ADA defines abnormalities in albumin excretion as follows: Albuminuria Category Result (mcg/mg creatinine) Normal to Mildly increased <30 Moderately increased 30-299 Severely increased > OR = 300 The ADA recommends that at least two of three specimens collected within a 3-6 month period be abnormal before considering a patient to be within a diagnostic category. 07/22/2023 2:02 PM DATA REVIEW SPECIALIST 07/22/2023 2:03 PM DATA REVIEW SPECIALIST Narrative [facility] - 07/23/2023 2:01 PM DATA REVIEW SPECIALIST FASTING:YES FASTING: YES us Ivonne Worley NP LAB URINE ORDERABLES Josy l Result [facility] [address] [place] [address] * (ABNORMAL) Lipid panel (07/22/2023 2:02 PM DATA REVIEW SPECIALIST) Cholesterol 140 <200 mg/dL [facility] HDL 37(L) > OR = 40 mg/dL [facility] Triglycerides 121 <150 mg/dL [facility] LDL 81 mg/dL (calc) [facility] Comment: Reference range: <100 Desirable range <100 mg/dL for primary prevention; <70 mg/dL for patients with CHD or diabetic patients with > or = 2 CHD risk factors. LDL-C is now calculated using the Beverley calculation, which is a validated novel method providing better accuracy than the Friedewald equation in the estimation of LDL-C. Tylor CONN et al. ADDISON. 2013;310(19): 7418-0268 (http://education.BigBarn/faq/YFO583) Chol/HDL ratio 3.8 <5.0 (calc) [facility] Non-HDL, (LDL+VLDL) 103 <130 mg/dL (calc) [facility] Comment: For patients with diabetes plus 1 major ASCVD risk factor, treating to a non-HDL-C goal of <100 mg/dL (LDL-C of <70 mg/dL) is considered a therapeutic option. 07/22/2023 2:02 PM DATA REVIEW SPECIALIST 07/22/2023 2:03 PM DATA REVIEW SPECIALIST Narrative [facility] - 07/23/2023 2:01 PM DATA REVIEW SPECIALIST FASTING:YES FASTING: YES us Ivonne Worley NP LAB BLOOD ORDERABLES Josy l Result [facility] [address] [place] [address] * (ABNORMAL) Comprehensive metabolic panel (07/22/2023 2:02 PM DATA REVIEW SPECIALIST) Glucose 136(H) 65 - 99 mg/dL [facility] Comment: Fasting reference interval For someone without known diabetes, a glucose value >125 mg/dL indicates that they may have diabetes and this should be confirmed with a follow-up test. BUN 17 7 - 25 mg/dL [facility] Creatinine 1.67(H) 0.70 - 1.35 mg/dL [facility] eGFR 44(L) > OR = 60 mL/min/1.7 3m2 [facility] BUN/creat ratio 10 6 - 22 (calc) [facility] Sodium 139 135 - 146 mmol/L [facility] Potassium, pl 3.6 3.5 - 5.3 mmol/L [facility] Chloride 103 98 - 110 mmol/L [facility] CO2 25 20 - 32 mmol/L [facility] Calcium 9.0 8.6 - 10.3 mg/dL [facility] Protein, sr 6.1 6.1 - 8.1 g/dL [facility] Albumin 4.2 3.6 - 5.1 g/dL [facility] GLOBULIN 1.9 1.9 - 3.7 g/dL (calc) [facility] Alb/glob ratio 2.2 1.0 - 2.5 (calc) [facility] Bilirubin, total 0.9 0.2 - 1.2 mg/dL [facility] Alk phos 46 35 - 144 U/L [facility] AST 20 10 - 35 U/L [facility] ALT (SGPT) 12 9 - 46 U/L [facility] 07/22/2023 2:02 PM DATA REVIEW SPECIALIST 07/22/2023 2:03 PM DATA REVIEW SPECIALIST Narrative [facility] - 07/23/2023 2:01 PM DATA REVIEW SPECIALIST FASTING:YES FASTING: YES us Ivonne Worley JOINERY SETTER OUT LAB BLOOD ORDERABLES Josy england Result [facility] [address] [place] [address] from Last 3 Months or Most Recently Relevant to Health Maintenance Insurance MED[employer]ARE [employer] [facility] MEDICARE Address: [facility] [address] [place] [address] [place] [address] MEDICARE [employer]UTIONS Care Teams Account Development Manager Relationship Specialty Start Date End Date Magno Thompson MD [address] [place] [address] PCP - General 08/10/07 [place] [address] [address] [facility] [address] [place] [address] Consulting Physician Endocrinology Diabetes & Metabolism 09/27/19 Khang Robledo, OD [address] [place] [address] Consulting Physician Ophthalmology 09/27/19 Victorino Richter OD [address] [place] [address] Optometry 08/09/20
--- OUTSIDE RECORDS SUMMARY | 2024-09-29 09:47 | XMS_ITS | Encounter Summary ---
Author Organization [facility] Address [address] [place] [address] Care Team Providers Care Cnc Wood Lathe Operator Name Role Phone Magno Thompson MD Primary Care Provider [phone] Encounter Details Date Type Department Care Team (Latest Contact Info) Description 06/29/2018 Abstract [facility] , Dennise Buchanan MD Social History Tobacco Use Types Packs/Day Years Used Date Smoking Tobacco: Never Assessed Sex and Gender Information Value Date Recorded Sex Assigned at Not on file Legal Sex Male 8:11 PM CDT Gender Identity Not on file Sexual Orientation Not on file documented as of this encounter Plan of Treatment Not on file documented as of this encounter Visit Diagnoses Not on filedocumented in this encounter Care Teams Cnc Wood Lathe Operator Relationship Specialty Start Date End Date Magno Thompson MD [address] [address] PCP - General 06/08/13 documented as of this encounter
--- OUTSIDE RECORDS SUMMARY | 2024-09-29 09:47 | XMS_ITS | Clinical Summary ---
Author Organization [facility] Address [address] [place] [address] Care Team Providers Care Activity Therapy Specialist Name Role Phone Magno Thompson MD Primary Care Provider [phone] Social History Tobacco Use Types Packs/Day Years Used Date Smoking Tobacco: Never Assessed Sex and Gender Information Value Date Recorded Sex Assigned at Not on file Legal Sex Male 8:11 PM CDT Gender Identity Not on file Sexual Orientation Not on file Last Filed Vital Signs Vital Sign Reading Time Taken Comments Blood Pressure 178/82 08/01/2013 9:19 AM FUR REPAIRER Pulse 100 08/01/2013 9:19 AM FUR REPAIRER Temperature - - Respiratory Rate - - Oxygen Saturation - - Inhaled Oxygen Concentration - - Weight 156.5 kg (345 lb) 08/01/2013 9:19 AM FUR REPAIRER Height 195.6 cm (6' 5 ) 08/01/2013 9:19 AM FUR REPAIRER Body Mass Index 40.91 08/01/2013 9:19 AM FUR REPAIRER Plan of Treatment Health Maintenance Due Date Last Done Comments Colorectal Cancer Screening Colonoscopy (10 Years) 1955 Hepatitis C 11/28/1971 DTaP, Tdap and Td Vaccines (1 - Tdap) 1972 Annual Medicare Wellness Visit 2018 COVID-19 Vaccine ( season) 2024 05/12/2023, 06/17/2022, 07/17/2021, Additional history exists Influenza Adult (#1) 2024 06/17/2022 Zoster Vaccines Completed 02/21/2020, 11/04/2019 Pneumococcal Vaccine: 65+ Years Completed 05/12/2023, 11/04/2019 RSV Immunization or 60+ Years Completed 05/12/2023 Meningococcal B Vaccine Aged Out No l onger eligible based on patient's age to complete this topic Meningococcal Vaccine Aged Out No macy whit eligible based on patient's age to complete this topic RSV Immunizations Under 20 Months Aged Out No longer eligible based on patient's age to complete this topic Procedures Procedure Name Priority Date/Time Associated Diagnosis Comments COLONOSCOPY Routine FUR REPAIRER from Last 3 Months or Most Recently Relevant to Health Maintenance Results * Colonoscopy ( FUR REPAIRER) Narrative [facility] TO EPIC CONVERSION - FUR REPAIRER Documented hx of procedure Procedure Note Dennise Buck MD - 06/27/2018 Documented hx of procedure us Generic Conversion Md BUCK GI PROCEDURE ORDERABLES Final Result [facility] TO EPIC CONVERSION from Last 3 Months or Most Recently Relevant to Health Maintenance Insurance [facility] Care Teams Activity Therapy Specialist Relationship Specialty Start Date End Date Magno Thompson MD [address] [address] PCP - General 06/08/13
--- OUTSIDE RECORDS SUMMARY | 2024-09-29 09:47 | XMS_ITS | Clinical Summary ---
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 Managed by Dr Cruz uW; sees him every 6 mos. Nephropathy: On KAVON-I / ARB s : Yes. Fosinopril 20mg bid. Last MA: 07/22/23 Last creat/GFR: 07/22/23 GFR=44, CR=1.67 Assessment & Plan (02/16/2024 10:09 AM CDT): Chronic problem. Managed by Dr Cruz Wu; sees him every 6 mos. JUN 3002/2024. Last creat/GFR: 07/22/23 GFR=44, CR=1.67. Assessment & Plan (10/12/2023 9:52 AM MEDICAL ACCOUNTANT): Chronic problem. Managed by Dr Cruz Wu; [...] fenofibrate 160mg. Last lipid panel: 07/22/23 LDL=81, ST=997. Rosuvastatin caused muscle weakness. Assessment & Plan (02/16/2024 9:58 AM CDT): Chronic problem. Currently taking Rosuvastatin 20mg & fenofibrate 160mg. Last lipid panel: 07/22/23 LDL=81, MW=710. Assessment & Plan (10/12/2023 9:37 AM MEDICAL ACCOUNTANT): Chronic problem. Currently taking Pravastatin 40mg & fenofibrate 160mg. Last lipid panel: 07/22/23 LDL=81, MJ=753. Assessment & Plan (06/22/2023 10:17 AM CDT): Chronic problem. Controlled on current Pravastatin 40mg & fenofibrate 160mg. Last lipid panel: 03/06/22 LDL=69, QH=880. Will update labs. Verified that he uses [facility]. Aware to check results/results letter in [facility]. Will contact by phone if needed. Assessment & Plan (09/09/2022 10:39 AM MEDICAL ACCOUNTANT): Chronic, well controlled Low fat Low cholesterol [...] therapy. Assessment & Plan (08/09/2020 1:41 PM MEDICAL ACCOUNTANT): Goal of treatment , LDL cholesterol less [...] well. Assessment & Plan (09/27/2019 12:26 PM MEDICAL ACCOUNTANT): Goal of treatment , LDL cholesterol less [...] therapy Assessment & Plan (08/18/2018 3:11 PM MEDICAL ACCOUNTANT): At goal on current medications. Assessment & [...] daily Assessment & Plan (10/12/2023 9:38 AM MEDICAL ACCOUNTANT): Chronic problem. Controlled on current Fosinopril 20mg bid, carvedilol 25mg bid, chlorthalidone 50mg daily Assessment & Plan (06/22/2023 10:16 AM CDT): Chronic problem. Controlled on current Fosinopril 20mg bid, carvedilol 25mg bid, chlorthalidone 50mg daily Will update labs. Verified that he uses [facility]. Aware to check results/results letter in [facility]. Will contact by phone if needed. Assessment & Plan (09/09/2022 10:39 AM MEDICAL ACCOUNTANT): Chronic, well controlled Importance of low salt diet and exercise were discussed Continue current meds, including Fosinopril Assessment & Plan (06/05/2022 9:53 AM CDT): Chronic problem, improved on recheck. No medication changes. Assessment & Plan (03/06/2022 1:59 PM CDT): Close to goal, and being managed by new service parts coordinator. No changes. Assessment & Plan (11/14/2021 11:53 [...] reviewed. Assessment & Plan (08/09/2020 1:41 PM MEDICAL ACCOUNTANT): Goal blood pressure is less than 140/85 [...] plan. Assessment & Plan (09/27/2019 12:27 PM MEDICAL ACCOUNTANT): Goal blood pressure is less than 140/85 [...] medications. Assessment & Plan (08/18/2018 3:11 PM MEDICAL ACCOUNTANT): Controlled on current medications. Assessment & Plan (05/13/2018 3:23 PM CDT): Continue follow up with Dr. Madrid. Check occasional home BP. Assessment & Plan (01/28/2018 10:45 AM CDT): Goal blood pressure is less than 140/85 Low salt diet recommended Daily aerobic exercise Continue current meds, including KAVON-I or ARB Diabetic polyneuropathy asso ciated with type 2 diabetes mellitus ([facility]) 12/03/2017 Assessment & Plan (06/14/2024 9:50 AM CDT): Chronic problem. Aware to check feet nightly & not to go barefoot. Assessment & Plan (02/16/2024 9:38 AM CDT): Chronic problem. Aware to check feet nightly & not to go barefoot. Assessment & Plan (10/12/2023 9:38 AM MEDICAL ACCOUNTANT): Chronic problem. Aware to check feet nightly & not to go barefoot. Assessment & Plan (06/22/2023 10:29 AM CDT): Chronic problem. Aware to check feet nightly & not to go barefoot. Assessment & Plan (09/09/2022 10:39 AM MEDICAL ACCOUNTANT): Foot care discussed Assessment & Plan (01/28/2018 10:43 AM CDT): Your Hba1c today was: Lab Results Component Value Date HGBA1C 7.1 01/28/2018 meaning a 3 month average sugar of : 150 Your goal hba1c is under 7.0 to prevent terminal system operator diabetes complications ( eye , kidney and [...] labs. UTD on DM eye exam (08/2023 [facility]). Strive for regular exercise [...] labs. UTD on DM eye exam (08/2023 [facility]). Strive for regular exercise [...] infection. Assessment & Plan (10/12/2023 9:57 AM MEDICAL ACCOUNTANT): Chronic problem. A1c near goal; improved from [...] Will update labs. Verified that he uses [facility]. Aware to check results/results letter in [facility]. Will contact by phone if needed. Please [...] infection. Assessment & Plan (09/09/2022 10:41 AM MEDICAL ACCOUNTANT): Hba1c was Lab Results Component Value Date [...] Foot care reviewed. Recommend follow up with slot technician. Assessment & Plan (08/09/2020 1:42 PM MEDICAL ACCOUNTANT): Hba1c was Lab Results Component Value Date [...] discussed. Assessment & Plan (09/27/2019 12:26 PM MEDICAL ACCOUNTANT): Hba1c was Lab Results Component Value Date [...] goal hba1c is under 7.0 to prevent fci diabetes complications ( eye , kidney and [...] foot Assessment & Plan (08/18/2018 3:10 PM MEDICAL ACCOUNTANT): A1c 7.3. Some variation in BG is [...] goal hba1c is under 7.0 to prevent fci diabetes complications ( eye , kidney and [...] 12/03/2017 01/28/2018 BMI 40.0-44.9, adult 12/03/2017 018 Surgical History Surgery Date Site/Laterality Comments REPLACEMENT TOTAL KNEE Bilateral ARM SURGERY Right x 2 Medical History Medical History Date Comments Type 2 diabetes mellitus (HCC) Hyperlipidemia Sleep apnea Degenerative disc disease, cervical Family History Medical History Relation Name Comments Hyperlipidemia Father Diabetes Mother Heart attack Mother Hyperlipidemia Mother Kidney failure Mother Stroke Mother Relation Name Status Comments Father Mother Social History Tobacco Use Types Packs/Day [...] on file Legal Sex Male 12:30 AM MEDICAL ACCOUNTANT Gender Identity Male 12/11/2023 3:15 PM CDT Sexual Orientation Straight 12/11/2023 3: 15 PM CDT Obstetrics History Last Filed Vital Signs Vital Sign Reading [...] 06/14/2024 9:21 AM CDT Plan of Treatment Health Maintenance Due Date Last Done Comments Colon Cancer Screening-Colonoscopy 1955 Fall Risk Assessment 1955 Hepatitis C Screening 1955 DTaP/Tdap/Td Vaccine (1 - Tdap) 1964 Hepatitis B Screening 11/28/1971 Well Visit 65+ 2018 Zoster Vaccine (2 of 2) 12/30/2019 11/04/2019 Depression Screening 04/11/2022 04/11/2021, 08/09/2020, 09/27/2019, Additional history exists Influenza Vaccine (#1) 2024 06/17/2022 Foot Exam 06/22/2024 06/22/2023, 03/2 11/2021, 12/13/2020, Additional history exists Albumin Creatinine Ratio, Urine 07/22/2024 , 11/20/2021 Lipid Panel 07/22/2024 07/22/2023, 07/1 11/2021, 05/10/2020, Additional history exists eGFR 07/22/2024 07/22/2023, 05/0 10/2022, 07/21/2022, Additional history exists Dilated Eye Exam 09/15/2024 09/15/2023, , 05/28/2021, Additional history exists Hemoglobin A1C 12/13/2024 06/14/2024, 01/23, 10/12/2023, Additional history exists Pneumococcal vaccine 65+ Completed 11/04/2019, 10/22 Procedures Procedure Name Priority Date/Time Associated Diagnosis Comments POCT HEMOGLOBIN A1C Routine 06/14/2024 9 :24 AM CDT Type 2 diabetes mellitus with hyperglycemia, with long-term current use of insulin (HCC) DIABETES EYE EXAM Routine 09/15/2023 COMPREHENSIVE METABOLIC PANEL Routine 07/22/2023 2:02 PM MEDICAL ACCOUNTANT LIPID PANEL Routine 07/22/2023 2:02 PM MEDICAL ACCOUNTANT ALBUMIN CREATININE RATIO, URINE Routine 07/22/2023 2:02 PM MEDICAL ACCOUNTANT from Last 3 Months or Most Recently [...] Albumin Creatinine Ratio, Urine (07/22/2023 2:02 PM MEDICAL ACCOUNTANT) Creatinine, ur 84 20 - 320 mg/dL [...] within a diagnostic category. 07/22/2023 2:02 PM MEDICAL ACCOUNTANT 07/22/2023 2:03 PM MEDICAL ACCOUNTANT Narrative [facility] - 07/23/2023 2:01 PM MEDICAL ACCOUNTANT FASTING:YES FASTING: YES us Ivonne Worley NP LAB URINE ORDERABLES Josy l Result [facility] [address] [place] [address] * (ABNORMAL) Lipid panel (07/22/2023 2:02 PM MEDICAL ACCOUNTANT) Pathologist [facility] Cholesterol 140 <200 mg/dL [facility] [...] factors. LDL-C is now calculated using the Tylor-Arturo calculation, which is a validated novel method providing better accuracy than the Friedewald equation in the estimation of LDL-C. Tylor SS et al. ADDISON. 2013;310(19): 6597-6155 (http://education.HotPads.BIC Science and Technology/faq/AZB209) Chol/HDL ratio 3.8 <5.0 (calc) [facility] Non-HDL, (LDL+VLDL) 103 <130 mg/dL (calc) [facility] Comment: For patients with diabetes plus 1 major ASCVD risk factor, treating to a non-HDL-C goal of <100 mg/dL (LDL-C of <70 mg/dL) is considered a therapeutic option. 07/22/2023 2:02 PM MEDICAL ACCOUNTANT 07/22/2023 2:03 PM MEDICAL ACCOUNTANT Narrative [facility] - 07/23/2023 2:01 PM MEDICAL ACCOUNTANT FASTING:YES FASTING: YES us Ivonne Worley GOLD LEAF ROLLER LAB BLOOD ORDERABLES Josy england Result [facility] [address] [address] * (ABNORMAL) Comprehensive metabolic panel (07/22/2023 2:02 PM MEDICAL ACCOUNTANT) Glucose 136(H) 65 - 99 mg/dL [facility] [...] U/L [facility] 07/22/2023 2:02 PM MEDICAL ACCOUNTANT 07/22/2023 2:03 PM MEDICAL ACCOUNTANT Narrative [facility] - 07/23/2023 2:01 PM MEDICAL ACCOUNTANT FASTING:YES FASTING: YES us Ivonne Worley GOLD LEAF ROLLER LAB BLOOD ORDERABLES Josy l Result [facility] [address] [place] [address] from Last 3 Months or Most Recently Relevant to Health Maintenance Insurance [employer] MED[employer]IONS Care Teams Inside Plant Supervisor Relationship Specialty Start Date End Date Magno Thompson MD [address] [place] [address] PCP - General 08/10/07 [place] [address] [address] [facility] [address] [place] [address] Consulting Physician Endocrinology Diabetes & Metabolism 09/27/19 Khang Robledo, OD [address] [place], [place] [id number] Consulting Physician Ophthalmology 09/27/19 Victorino Richter OD [address] [facility] [place] [address] Optometry 08/09/20
--- OUTSIDE RECORDS SUMMARY | 2024-09-29 09:47 | XMS_ITS | Clinical Summary ---
Author Organization [facility] Address [address] [place] [address] Care Team Providers Care Hairspring Cutter Name Role Phone Magno Thompson MD Primary Care Provider +1- [phone] Allergies Active Allergy Reactions Criticality Noted Date Comments Baclofen Nausea and Vomiting High 03/06/2022 Canagliflozin Headache Low 02/02/2020 Perflutren Lipid Microspheres Other (See Comments) Low 01/28/2024 Prednisone Nausea and Vomiting High 03/06/2022 Rosuvastatin Muscle Pain Medium 06/06/2024 Medications ascorbic acid, vitamin C, (VITAMIN C) 1,000 mg Tablet Take 1,000 mg by mouth daily. Active blood sugar diagnostic (OneTouch Ultra Test) Strip USE DIRECTED TO TEST BLOOD SUGAR THREE TIMES DAILY 12/04/19 22 Active carvediloL (COREG) 25 mg tablet 08/21/20 22 Active Cholecalcifero l, Vitamin D3, 50 mcg (2,000 unit) Capsule 2,000 Units. Act iman dutasteride (AVODART) 0.5 mg Capsule Take 0.5 mg by mouth daily. Active fenofibrate (LOFIBRA) 160 mg Tablet 09/07/19 22 Active flash glucose sensor (FreeStyle Gabi 2 Sensor) Kit Change sensor q 2 weeks 09/09/19 23 Active insulin lispro protamine-lisp ro (HumaLOG MIX 50-50) 100 unit/mL (50-50) pen syringe Inject 62 Units by subcutaneous injection 2 times daily. 11/15/19 22 Active metFORMIN (GLUCOPHAGE XR) 500 mg Extended Release 24 hour tablet TAKE TWO TABLETS BY MOUTH TWICE DAILY 06/04/20 22 Active omeprazole (PriLOSEC) 40 mg Capsule, Delayed Release(E.C.) Take 40 mg by mouth daily at bedtime. Active tamsulosin (FLOMAX) 0.4 mg capsule Take 0.4 mg by mouth daily at bedtime. Active thiamine (VITAMIN B-1) 100 mg tablet Take 100 mg by mouth daily. Active Coenzyme O70-Qqlbidy E 100-5 mg-unit Capsule Take 100 mg by mouth daily. Active multivitamins- minerals-lutei n (CENTRUM SILVER) Tablet Take 1 Tablet by mouth daily. Active aspirin (ECOTRIN EC) 81 mg Tablet, Delayed Release (E.C.) Take 81 mg by mouth daily. Active chlorthalidone (HYGROTON) 50 mg tablet Take 50 mg by mouth daily. Active dulaglutide (Trulicity) 3 mg/0.5 mL injection Inject 0.5 mL (3 mg) by subcutaneous injection every 7 days. 6 mL 3 4 9:22 AM CREW LEADER 09/03/19 24 Active fosinopriL (MONOPRIL) 40 mg tablet Take 40 mg by mouth daily. 01/12/20 24 Active atorvastatin (LIPITOR) 20 mg tablet TAKE 1 TABLET(20 MG) BY MOUTH DAILY 30 Tablet 8 09/21/19 25 Active atorvastatin (LIPITOR) 20 mg tablet TAKE 1 TABLET(20 MG) BY MOUTH DAILY 30 Tablet 1 07/29/20 24 025 Discontinued Active Problems Problem Noted Date Diagnosed Date Atherosclerosis of [place] co ronary artery of [place] heart without angina pectoris 05/24/2024 PSVT (paroxysmal supraventricular tachycardia) 1 Hyperlipidemia 05/24/2024 Primary hypertension 05/24/2024 Abdominal aortic atherosclerosis 05/24/2024 Family history of atherosclerosis 05/24/2024 Encounters Date Type Department Care Team Description 09/20/2024 External Device Data STL ABSTRACTION Provider, Abstract 09/20/2024 [facility] Heart and Vascular - [address] [facility] [address] [address] [facility] [address] [place] [address] Angeles Ayers, SUPERVISOR FERTILIZER 09/14/2024 External Device Data STL ABSTRACTION Provider, Abstract 09/14/2024 External Device Data STL ABSTRACTION Provider, Abstract 09/07/2024 External Device Data STL ABSTRACTION Provider, Abstract 07/29/2024 [facility] Heart and Vascular - [address] [facility] [address] [place] [address] Angeles Ayers, SUPERVISOR FERTILIZER from Last 3 Months Family History Medical History Relation Name Comments Heart Attack Brother Terence Mack Heart Disease Brother Terence Mack Heart Surgery Brother Terence Mack High Cholesterol Brother Terence Mack Hypertension Brother Terence Mack Other Brother Terence Mack High Cholesterol Father Alvarez Ray Hypertension Father Alvarez Ray Diabetes Mother Glenda Mack High Cholesterol Mother Glenda Mack Hypertension Mother Glenda Mack Relation Name Status Comments Brother Terence Mack Alive Father Alvarez Mack Mother Glenda Mack Social History Tobacco Use Types Packs/Day Years Used Date Smoking Tobacco: Never Smokeless Tobacco: Never Tobacco Cessation:Counseling Given: Not Answered Alcohol Use Standard Drinks/Week Comments Not Currently 0 (1 standard drink = 0.6 oz pur e alcohol) Sex and Gender Information Value Date Recorded Sex Assigned at Male 05/09/2024 2:11 PM CDT Legal Sex Male 3:35 PM CREW LEADER Gender Identity Male 05/09/2024 2:11 PM CDT Sexual Orientation Choose not to disclose 2023 2:11 PM CDT Last Filed Vital Signs Vital Sign Reading Time Taken Comments Blood Pressure 132/72 05/24/2024 9:14 AM CDT Pulse 72 05/24/2024 9:14 AM CDT Temperature 36.6 C (97.9 F) 02/12/2024 6:35 AM CDT Respiratory Rate 15 02/12/2024 1:00 PM CDT Oxygen Saturation 100% 02/12/2024 1:00 PM CDT Inhaled Oxygen Concentration - - Weight 139.3 kg (307 lb) 05/24/2024 9:14 AM CDT Height 195.6 cm (6' 5 ) 05/24/2024 9:14 AM CDT Body Mass Index 36.4 05/24/2024 9:14 AM CDT Plan of Treatment Upcoming Encounters Date Type Department Care Team (Late st Contact Info) Description 09/29/2024 10:00 AM CREW LEADER Office Visit [facility] Oncology and Hematology - [place] [address] [facility] [address] [place] [address] Mk Atkinson MD [address] [facility] [address] [place] [address] 05/24/2025 8:00 AM CDT Office Visit [facility] Heart and Vascular - [address] [facility] [address] [address] [facility] [address] [place] [address] [place] [address] [facility] [address] [place] [address] Health Maintenance Due Date Last Done Comments DIABETES ANNUAL RETINAL EXAM 11/28/1971 DIABETES MICROALBUMIN ANNUAL SCREEN 11/28/1971 LDL CHOLESTEROL ANNUAL 11/28/1971 DTAP/TDAP/TD VACCINES (1 - Tdap) 1972 PNEUMOCOCCAL VACCINE 65+ YEA RS (1 of 2 - PCV) 1972 11/04/2019 COLORECTAL SCREENING 1998 Colorectal Cancer Screening 1998 FIT-DNA Q 3 years 1998 FIT/FOBT Q 1 year 1998 Flex Sig/CT Colonography Q 5 years 1998 ZOSTER VACCINE (1 of 2) 11/28/2003 RSV VACCINE (60+ or ) (1 - Risk 60-74 years 1-dose series) 2013 INFLUENZA VACCINE (#1) 2024 06/17/2022 DIABETES ANNUAL FOOT EXAM 06/22/2024 06/22/2023 DIABETES HBA1C Q 6 MONTHS 08/17/2024 02/16/2024, [place] Prev entative Visit/Annual Wellness Visit 08/24/2024 Procedures Procedure Name Priority Date/Time Associated Diagnosis Comments PROTEIN ELECTROPHORESIS W/REFLEX,SERUM Routine 09/21/2024 7:59 AM CREW LEADER Selective IgM deficiency (CMS/HCC) KAPPA/LAMBDA LIGHT CHAINS Routine 09/21/2024 7:59 AM CREW LEADER Selective IgM deficiency (CMS/HCC) IMMUNOGLOBULINS IGG IGA IGM Routine 09/21/2024 7:59 AM CREW LEADER Selective IgM deficiency (CMS/HCC) from Last 3 Months Results * (ABNORMAL) KAPPA/LAMBDA, FREE LIGHT CHAINS (09/21/2024 7:59 AM CREW LEADER) KAPPA FREE LIGHT CHAIN 33.2(H) 3.3 - 19.4 mg/L [facility] [place] LAMBDA FREE LIGHT CHAIN 25.3 5.7 - 26.3 mg/L [facility] [place] KAPPA/LAMBDA LIGHT CHAIN RATIO 1.31 0.26 - 1.65 [facility] [place] Comment: Free kappa/lambda ratio in serum of normal individuals is 0.26-1.65. Excess production of free kappa or lambda chains can alter this ratio. Monoclonal free light chains are found in serum of patients with multiple myeloma, Waldenstrom's macroglobulinemia, mu-heavy chain disease, primary amyloidosis, light chain deposition disease, monoclonal gammopathy of undetermined significance, and lymphoproliferative disorders. Measurement of free light chain concentration in serum is useful for diagnosis, prognosis, monitoring disease activity and following response to therapy of these disorders. FASTING:YES FASTING: YES Test Performed at: [facility] [address] [place] [address] Luis Jennings MD Blood 09/21/2024 7:59 AM CREW LEADER 09/21/2024 7:59 AM CREW LEADER us Mk Atkinson MD CHEMISTRY ORDERABLES Final Resu lt [facility] [phone] [facility] [address] * (ABNORMAL) IMMUNOGLOBULINS IGG IGA IGM (09/21/2024 7:59 AM CREW LEADER) IGA 183 70 - 320 mg/dL [facility] IGG 802 600 - 1540 mg/dL [facility] IGM 26(L) 50 - 300 mg/dL [facility] Comment: FASTING:YES FASTING: YES Test Performed at: [facility] [address] [place] [address] Luis Jennings MD Blood 09/21/2024 7:59 AM CREW LEADER 09/21/2024 7:59 AM CREW LEADER Mk Atkinson MD CHEMISTRY ORDERABLES Final Resu lt Performing Organization Address [facility] Co de Phone Number [facility] [phone] [facility] [place] [address] * (ABNORMAL) PROTEIN ELECTROPHORESIS W/REFLEX,SERUM (09/21/2024 7:59 AM CREW LEADER) TOTAL PROTEIN 6.3 6.1 - 8.1 g/dL [facility] ALBUMIN SPE 3.7(L) 3.8 - 4.8 g/dL [facility] ALPHA 1 GLOBULIN SPE 0.3 0.2 - 0.3 g/dL [facility] ALPHA 2 GLOBULIN SPE 0.8 0.5 - 0.9 g/dL [facility] Beta 1 Globulin 0.5 0.4 - 0.6 g/dL [facility] Beta 2 Globulin 0.4 0.2 - 0.5 g/dL [facility] GAMMA GLOBULIN 0.8 0.8 - 1.7 g/dL [facility] SPE INTERP [facility] Comment: Hypoalbuminemia may be seen as a result of decreased protein synthesis or protein loss. No restricted band (M-spike) seen. FASTING:YES FASTING: YES Test Performed at: [facility] [address] [place] [address] Luis Jennings MD Blood 09/21/2024 7:59 AM CREW LEADER 09/21/2024 7:59 AM CREW LEADER Mk Atkinson MD CHEMISTRY ORDERABLES Final Resu lt Performing Organization Address City/[facility] Co de Phone Number [facility] [phone] [facility] [address] [address], [place] [address] from Last [address] [place] [address] [id number] RX [employer] RX Member Subscriber Plan / Payer (Ef fective 2023-Present) Name:Martina, Abhi Barrera Relation to Subscriber:Self Name:Abhi Mack Barrera Payer ID:Not on file Group ID:[id number] Type:RX Medicare Part D Address: [place] [id number] Care Teams Hairspring Cutter Relationship Specialty Start Date End Date Magno Thompson MD [address] [address] PCP - General Family Practice 12/09/22
[2024-09-29 09:49] LABS: Hematocrit 37.4 % (42.0-52.0); Hemoglobin 12.6 g/dL (14.0-18.0); Mean Corpuscular HGB Conc 33.7 g/dl (32-36); Mean Corpuscular Hemoglobin 30.5 pg (26-34); Mean Corpuscular Volume 90.6 fl (80-100); Mean Platelet Volume 8.9 fl (7.4-10.4); Platelet Count Result 229 k/mm3 (150-375); Red Blood Count 4.13 M/mm3 (4.6-6.20); Red Cell Distribution Width 12.4 % (11.5-14.5); White Blood Count 6.7 K/mm3 (4.5-10.0)
[2024-09-29 09:57] LABS: Blood Urea Nitrogen 17 mg/dL (8-26); Carbon Dioxide 25 mmol/L (22-30); Chloride 100 mmol/L (98-109); Estimated Glomerular Filt Rate 37; Glucose 201 mg/dL (70-105); Ionized Calcium (POC) 1.18 mmol/L (1.11-1.31); Potassium 3.8 mmol/L (3.5-4.9); Sodium 138 mmol/L (138-146)
[2024-09-29 12:54] LABS: Alanine Aminotransferase 17 U/L (6-50); Albumin Level 3.9 g/dL (3.5-5.1); Alkaline Phosphatase 68 U/L (38-126); Anion Gap 9 mmol/L (4-12); Aspartate Amino Transferase 29 U/L (17-59); Bilirubin,Total 0.9 mg/dL (0.2-1.3); Blood Urea Nitrogen 18 mg/dL (9-20); Carbon Dioxide 26 mmol/L (22-30); Chloride 101 mmol/L (98-107); Estimated Glomerular Filt Rate 41; Glucose 188 mg/dL (65-110); Potassium 3.9 mmol/L (3.4-5.0); Sodium 136 mmol/L (137-145)
== END 2024-09-29 09:39 | disposition home or self-care (01) ==
LOC: ANHLAB 09:38
PROVIDERS: PCP Family Medicine Adolescent Medicine; Visit Provider Internal Medicine Hematology & Oncology
DX: D80.4 Selective deficiency of immunoglobulin M [IgM] (principal)
CPT/HCPCS: 36415; 80047; 80053; 85027

== ENCOUNTER 2024-11-08 16:12 | Outpatient (CLI) | payer MEDICARE, SELFPAY ==
--- NOTE | ~2024-11-08 | US_ITS ---
EXAMINATION: US venous doppler LE RT DATE: 11/08/2024 16:29 INDICATION: Right lower extremity swelling TECHNIQUE: Grayscale ultrasound images without and with compression and Doppler ultrasound images of the right lower extremity veins were obtained. COMPARISON: 01/22/2023 FINDINGS: The visualized portions of right common femoral vein, profunda (deep) femoral vein, femoral vein, pop liteal vein, peroneal veins, posterior tibial veins, and greater saphenous vein outflow are patent. IMPRESSION: 1. No deep venous thrombosis within the right lower extremity, as detailed above. Reviewed, dictated and finalized at location A. IMPRESSION: 1. No deep venous thrombosis within the right lower extremity, as detailed abo ve.
--- OUTSIDE RECORDS SUMMARY | 2024-11-08 17:53 | XMS_ITS | Encounter Summary ---
Author Organization [facility] Address [address] [place] [address] Care Team Providers Care Combine Operator Name Role Phone Magno Thompson MD Primary Care Provider +1- [phone] Encounter Details Date Type Department Care Team (Latest Contact Info) Description 06/29/2018 Abstract [facility] , Dennise Buchanan MD Social [...] on filedocumented in this encounter Care Teams Combine Operator Relationship Specialty Start Date End Date Magno Thompson MD [address] [address] PCP - General 06/08/13 documented as of this encounter
--- OUTSIDE RECORDS SUMMARY | 2024-11-08 17:53 | XMS_ITS | Clinical Summary ---
Author Organization [facility] Address [address] [place] [address] Care Team Providers Care Collective Bargaining Specialist Name Role Phone Magno Thompson MD Primary Care Provider +1- [phone] Allergies Active Allergy Reactions Criticality Noted Date [...] TO TEST BLOOD SUGAR THREE TIMES DAILY 2 Active carvediloL (COREG) 25 mg tablet 2 Active Cholecalciferol , Vitamin D3, 50 mcg (2,000 unit) Capsule 2,000 Units. Act iman dutasteride (AVODART) 0.5 mg Capsule Take 0.5 mg by mouth daily. Active fenofibrate (LOFIBRA) 160 mg Tablet 2 Active flash glucose sensor (FreeStyle Gabi 2 Sensor) Kit Change sensor q 2 weeks 3 Active insulin lispro protamine-lispr o (HumaLOG MIX 50-50) 100 unit/mL (50-50) pen syringe Inject 62 Units by subcutaneous injection 2 times daily. 2 Active metFORMIN (GLUCOPHAGE XR) 500 mg Extended Release 24 hour tablet TAKE TWO TABLETS BY MOUTH TWICE DAILY 2 Active omeprazole (PriLOSEC) 40 mg Capsule, Delayed Release(E.C.) Take 40 mg by mouth daily at bedtime. Active tamsulosin (FLOMAX) 0.4 mg capsule Take 0.4 mg by mouth daily at bedtime. Active thiamine (VITAMIN B-1) 100 mg tablet Take 100 mg by mouth daily. Active Coenzyme W99-Brtasvt E 100-5 mg-unit Capsule Take 100 mg by mouth daily. Active multivitamins-m inerals-lutein (CENTRUM SILVER) Tablet Take 1 Tablet by mouth daily. Active aspirin (ECOTRIN EC) 81 mg Tablet, Delayed Release (E.C.) Take 81 mg by mouth daily. Active chlorthalidone (HYGROTON) 50 mg tablet Take 50 mg by mouth daily. Active dulaglutide (Trulicity) 3 mg/0.5 mL injection Inject 0.5 mL (3 mg) by subcutaneous injection every 7 days. 6 mL 3 09/04/2023 9:22 AM PILOT CAPTAIN 4 Active fosinopriL (MONOPRIL) 40 mg tablet Take 40 mg by mouth daily. 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 artery of [place] heart without angina pectoris 05/24/2024 PSVT (paroxysmal supraventricular tachycardia) 1 Hyperlipidemia 05/24/2024 Primary hypertension 05/24/2024 Abdominal aortic atherosclerosis 05/24/2024 Family history of atherosclerosis 05/24/2024 Encounters Date Type Department Care Team Description 10/29/2024 External Device Data STL ABSTRACTION Provider, Abstract 10/28/2024 External Device Data STL ABSTRACTION Provider, Abstract 10/11/2024 External Device Data STL ABSTRACTION Provider, Abstract 09/29/2024 10:00 AM PILOT CAPTAIN Office Visit [facility] Oncology and Hematology [facility] [address] [place] [address] Mk Atkinson MD Selective IgM deficiency (CMS/HCC) (Primary Dx) 09/29/2024 Orders Only [facility] Oncology and Hematology - [place] [address] [place] [address] Mk Atkinson MD 09/20/2024 External Device Data STL ABSTRACTION Provider, Abstract 09/20/2024 Refill [facility] Heart and Vascular - [address] [facility] [address] [address] [address] [place] [address] Angeles Ayers, FITTER ARMAMENT 09/14/2024 External Device Data STL ABSTRACTION Provider, Abstract 09/14/2024 External Device Data STL ABSTRACTION Provider, Abstract 09/07/2024 External Device Data STL ABSTRACTION Provider, Abstract from Last 3 Months Family History Medical History Relation Name Comments Heart Attack Brother Terence Mack Heart Disease Brother Terence Mack Heart Surgery Brother Terence Mack High Cholesterol Brother Terence Mack Hypertension Brother Terence Mack Other Brother Teernce Mack High Cholesterol Father Alvarez Mack Hypertension Father Alvarez Mack Diabetes Mother Glenda Mack High Cholesterol Mother [...] PM CDT Legal Sex Male 3:35 PM PILOT CAPTAIN Gender Identity Male 05/09/2024 2:11 PM CDT Sexual Orientation Choose not to disclose 2023 2:11 PM CDT Last Filed Vital Signs Vital Sign Reading Time Taken Comments Blood Pressure 148/85 09/29/2024 9:56 AM PILOT CAPTAIN Pulse 69 09/29/2024 9:52 AM PILOT CAPTAIN Temperature 36.1 C (96.9 F) 09/29/2024 9:52 AM PILOT CAPTAIN Respiratory Rate 15 09/29/2024 9:52 AM PILOT CAPTAIN Oxygen Saturation 97% 09/29/2024 9:52 AM PILOT CAPTAIN Inhaled Oxygen Concentration - - Weight 138.3 kg (304 lb 12.8 oz) 09/29/2024 9:52 AM PILOT CAPTAIN Height 195.6 cm (6' 5 ) 05/24/2024 9:14 AM CDT Body Mass Index 36.14 05/24/2024 9:14 AM CDT Plan of Treatment Upcoming Encounters Date Type Department Care Team (Late st Contact Info) Description 05/24/2025 8:00 AM CDT Office Visit [facility] Heart and Vascular - [address] [facility] [address] [address] [facility] [address] [place] [address] [place] [address] [facility] [address] [place] [address] 09/29/2025 8:30 AM PILOT CAPTAIN Office Visit [facility] Oncology and Hematology - [place] [address] [facility] [address] [place] [address] Mk Atkinson MD [address] [facility] [address] [place] [address] Health Maintenance Due Date Last Done Comments DIABETES ANNUAL RETINAL EXAM 11/28/1971 DIABETES MICROALBUMIN ANNUAL SCREEN 11/28/1971 LDL CHOLESTEROL ANNUAL 11/28/1971 DTAP/TDAP/TD VACCINES (1 - Tdap) 1972 PNEUMOCOCCAL VACCINE 50+ YEA RS (1 of 2 - PCV) 1972 11/04/2019 ZOSTER VACCINE (1 of 2) 1972 COLORECTAL SCREENING 1998 Colorectal Cancer Screening 1998 FIT-DNA Q 3 years 1998 FIT/FOBT Q 1 year 1998 Flex Sig/CT Colonography Q 5 years 1998 RSV VACCINE (60+ or ) (1 - Risk 60-74 years 1-dose series) 2013 INFLUENZA VACCINE (#1) 2024 06/17/2022 DIABETES ANNUAL FOOT EXAM 06/22/2024 06/22/2023 DIABETES HBA1C Q 6 MONTHS 12/13/20242023, 02/16/2024, 10/12/2023 Procedures Procedure Name Priority Date/Time Associated Diagnosis Comments CBC WITH DIFFERENTIAL Routine 09/29/2024 10:01 AM PILOT CAPTAIN PROTEIN ELECTROPHORESIS W/REFLEX,SERUM Routine 09/21/2024 7:59 AM PILOT CAPTAIN Selective IgM deficiency (CMS/HCC) KAPPA/LAMBDA LIGHT CHAINS Routine 09/21/2024 7:59 AM PILOT CAPTAIN Selective IgM deficiency (CMS/HCC) IMMUNOGLOBULINS IGG IGA IGM Routine 09/21/2024 7:59 AM PILOT CAPTAIN Selective IgM deficiency (CMS/HCC) from Last 3 Months Results * CBC WITH DIFFERENTIAL (09/29/2024 10:01 AM PILOT CAPTAIN) Blood us Mk Atkinson MD HEMATOLOGY ORDERABLES Final Res ult * (ABNORMAL) KAPPA/LAMBDA, FREE LIGHT CHAINS (09/21/2024 7:59 AM PILOT CAPTAIN) KAPPA FREE LIGHT CHAIN 33.2(H) 3.3 - 19.4 mg/L [facility] LAMBDA FREE LIGHT CHAIN 25.3 5.7 - 26.3 mg/L [facility] KAPPA/LAMBDA LIGHT CHAIN RATIO 1.31 0.26 - 1.65 [facility] Comment: Free kappa/lambda ratio in serum of [...] disorders. FASTING:YES FASTING: YES Test Performed at: [facility] [address] [place] [address] Luis Jennings MD Blood 09/21/2024 7:59 AM PILOT CAPTAIN 09/21/2024 7:59 AM PILOT CAPTAIN Mk Atkinson MD CHEMISTRY ORDERABLES Final Resu lt Performing Organization Address City/[facility]/ZIP Co de Phone Number [facility] [phone] [facility] [address] * (ABNORMAL) IMMUNOGLOBULINS IGG IGA IGM (09/21/2024 7:59 AM PILOT CAPTAIN) Pathologist [facility] IGA 183 70 - 320 mg/dL [facility] IGG 802 600 - 1540 mg/dL [facility] IGM 26(L) 50 - 300 mg/dL [facility] Comment: FASTING:YES FASTING: YES Test Performed at: [facility] [address] Luis Jennings MD Blood 09/21/2024 7:59 AM PILOT CAPTAIN 09/21/2024 7:59 AM PILOT CAPTAIN Mk Atkinson MD CHEMISTRY ORDERABLES Final Resu lt Performing Organization Address [facility] Co de Phone Number [facility] [phone] [facility] [address] * (ABNORMAL) PROTEIN ELECTROPHORESIS W/REFLEX,SERUM (09/21/2024 7:59 AM PILOT CAPTAIN) Pathologist [facility] TOTAL PROTEIN 6.3 6.1 - 8.1 g/dL [...] seen. FASTING:YES FASTING: YES Test Performed at: [facility] [address] [place] [address] Luis Jennings MD Blood 09/21/2024 7:59 AM PILOT CAPTAIN 09/21/2024 7:59 AM PILOT CAPTAIN us Mk Atkinson MD CHEMISTRY ORDERABLES Final Resu lt [facility] [phone] [facility] [address] [place] [phone] from Last 3 Months Insurance RX [employer] RX Member Subscriber Plan / Payer (Ef fective 2023-Present) Name:Abhi Mack Relation to Subscriber:Self Name:Abhi Mack Payer ID:Not on file Group ID:[id number] Type:RX Medicare Part D Address: [address] [facility] [address] Care Teams Collective Bargaining Specialist Relationship Specialty Start Date End Date Magno Thompson MD [address] [address] PCP - General Family Practice 12/09/22
--- OUTSIDE RECORDS SUMMARY | 2024-11-08 17:53 | XMS_ITS | Referral Summary ---
Author Organization [facility] [address] Address [address] [place] [address] Care Team Providers Care Bending Roll Operator Name Role Phone Magno Thompson MD Primary Care Prov ider Jaci Dickinson MD Unavailable Khang Robledo OD Unavailable [phone] Victorino Richter OD Unavailable Encounters Date Type Department Care Team Description 10/21/2024 Results Follow-Up [facility] [address] [place] [phone] Ivonne Worley NP 10/14/2024 Orders Only [facility] [address] [place] [phone] ProviderMayela MD 10/14/2024 Telephone [facility]ology [address] [place] [phone] Ivonne Worley NP Lab orders 10/14/2024 10:00 AM ROLL TRUCKER Office Visit [facility] Diabetes and Endocrinology [address] [place] [phone] Ivonne Worley, JEFRY Type 2 diabetes mellitus with hyperglycemia, with long-term current use of insulin (HCC) (Primary Dx); Hypertension associated with diabetes (HCC); Hyperlipidemia associated with type 2 diabetes mellitus (HCC); Diabetic polyneuropathy associated with type 2 diabetes mellitus (HCC); Type 2 diabetes mellitus with stage 3a chronic kidney disease, with long-term current use of insulin ([facility]) from Last 3 Months Allergies Active Allergy Reactions Criticality Noted Date Comments Baclofen Nausea only,Nausea A nd Vomiting High 03/06/2022 Canagliflozin Headache Low 02/02/2020 Perflutren Lipid Microspheres Joint pain Low 01/28/2024 Prednisone Nausea only,Nausea A nd Vomiting High 03/06/2022 Rosuvastatin Muscle pain Medium 06/06/2024 Weakness Medications fosinopril (MONOPRIL) 40 mg tablet Take one by mouth one time per day 0 0 7 Active Additional Information Patient taking differently:40 mgoral, 1/2 tab in the morning and 1/2 tab in the evening, Reported on 10/14/2024 aspirin (ASPIR-81) 81 mg tablet Take one by mouth one time per day 0 0 7 Active dutasteride (AVODART) 0.5 mg capsuleIndicatio ns:benign prostatic hyperplasia with lower urinary tract sx [...] (100 mg total) by mouth daily Active HYDROcodone-acet aminophen (NORCO) 7.5-325 mg per tabletIndication s:Pain Take 1 tablet by mouth every 8 (eight) hours as needed 0 8 Active fenofibrate (TRIGLIDE) 160 mg tablet 2 Active carvediloL (COREG) 25 mg tablet Take 0.5 tablets (12.5 mg total) by mouth 2 (two) times a day with meals 2 Active chlorthalidone 50 mg tablet 2 Active ketoconazole (NIZORAL) 2 % cream APPLY TOPICALLY TO THE AFFECTED AREA TWICE DAILY 3 Active multivitamin-min erals-lutein tablet Take 1 tablet by mouth daily Active coenzyme F64-fuluquo E 100-5 mg-unit capsule Take 100 mg by mouth daily Active insulin lispro protamine-insuli n lispro 50/50 (HumaLOG 50/50 100 unit/mL) 100 unit/mL pen for injectionIndicat ions:Type 2 diabetes mellitus with hyperglycemia, with long-term current use of insulin (HCC) INJECT 55 UNITS BEFORE BREAKFAST & 35 UNITS BEFORE DINNE 105 mL 3 3 Active Additional Information Patient taking differently: INJECT 60 UNITS BEFORE BREAKFAST & 35 UNITS BEFORE DINNE, Reported on 10/14/2024 dulaglutide (TRULICITY) 1.5 mg/0.5 mL pen injectorIndicati ons:type 2 diabetes mellitus Inject 0.5 mL (1.5 mg total) under the skin once a week 6 mL 3 4 02/16/20 25 Active flash glucose sensor (FreeStyle Gabi 2 Sensor) kit CHANGE SENSOR EVERY 2 WEEKS 6 kit 3 4 Active atorvastatin (LIPITOR) 20 mg tablet Take 1 tablet (20 mg total) by mouth daily 4 Active chlorthalidone (HYGROTON) 25 mg tablet Take 2 tablets (50 mg total) by mouth daily 4 Active metFORMIN XR (GLUCOPHAGE XR) 500 mg 24 hr tabletIndication s:Type 2 diabetes mellitus with hyperglycemia, with long-term current use of insulin (HCC) TAKE TWO TABLETS BY MOUTH TWICE DAILY 360 tablet 3 5 Active Active Problems Problem Noted Date [...] Chronic kidney disease in type 2 diabetes [facility] 06/22/2023 Assessment & Plan (10/14/2024 10:30 AM ROLL TRUCKER): Chronic problem. Managed by Dr Cruz Wu; sees him every 6 mos. Nephropathy: On KAVON-I / ARB s : Yes. Fosinopril 20mg bid. Last MA: 07/22/23 Last creat/GFR: 07/22/23 GFR=44, CR=1.67 Will update labs. Verified that he uses mychart. Aware to check results/results letter in mychart. Will contact by phone if needed. Assessment & Plan (06/14/2024 9:50 AM CDT): Chronic problem. Managed by Dr Cruz Wu; sees him every 6 mos. Nephropathy: On KAVON-I / ARB s : Yes. Fosinopril 20mg bid. Last MA: 07/22/23 Last creat/GFR: 07/22/23 GFR=44, CR=1.67 Assessment & Plan (02/16/2024 10:09 AM CDT): Chronic problem. Managed by Dr Cruz Wu; sees him every 6 mos. NOV 02/2024. Last creat/GFR: 07/22/23 GFR=44, CR=1.67. Assessment & Plan (10/12/2023 9:52 AM ROLL TRUCKER): Chronic problem. Managed by Dr Cruz Wu; sees him every 6 mos. Last creat/GFR: 07/22/23 GFR=44, CR=1.67. Assessment & Plan (06/22/2023 10:31 AM CDT): Chronic problem. Managed by Dr Cruz Wu. Morbid (severe) obesity due to excess calories 0 09/09/2022 Hyperlipidemia associated with type 2 diabetes deanne soriano 01/28/2018 Assessment & Plan (10/14/2024 10:30 AM ROLL TRUCKER): Chronic problem. Currently taking Atorvastatin 20mg & fenofibrate 160mg. Last lipid panel: 07/22/23 LDL=81, FK=407. Rosuvastatin caused muscle weakness. Will update labs. Verified that he uses mychart. Aware to check results/results letter in mychart. Will contact by phone if needed. Assessment & Plan (06/14/2024 9:58 AM CDT): Chronic problem. Currently taking Atorvastatin 20mg & fenofibrate 160mg. Last lipid panel: 07/22/23 LDL=81, SB=070. Rosuvastatin caused muscle weakness. Assessment & Plan (02/16/2024 9:58 AM CDT): Chronic problem. Currently taking Rosuvastatin 20mg & fenofibrate 160mg. Last lipid panel: 07/22/23 LDL=81, XO=934. Assessment & Plan (10/12/2023 9:37 AM ROLL TRUCKER): Chronic problem. Currently taking Pravastatin 40mg & fenofibrate 160mg. Last lipid panel: 07/22/23 LDL=81, LT=771. Assessment & Plan (06/22/2023 10:17 AM CDT): Chronic problem. Controlled on current Pravastatin 40mg & fenofibrate 160mg. Last lipid panel: 03/06/22 LDL=69, AP=504. Will update labs. Verified that he uses [employer]. Aware to check results/results letter in [employer]. Will contact by phone if needed. Assessment & Plan (09/09/2022 10:39 AM ROLL TRUCKER): Chronic, well controlled Low fat Low cholesterol [...] therapy. Assessment & Plan (08/09/2020 1:41 PM ROLL TRUCKER): Goal of treatment , LDL cholesterol less [...] well. Assessment & Plan (09/27/2019 12:26 PM ROLL TRUCKER): Goal of treatment , LDL cholesterol less [...] therapy Assessment & Plan (08/18/2018 3:11 PM ROLL TRUCKER): At goal on current medications. Assessment & [...] associated with diabetes 01/28/2018 Assessment & Plan (10/14/2024 10:31 AM ROLL TRUCKER): Chronic problem. Controlled on current Fosinopril 20mg bid, carvedilol 25mg bid, chlorthalidone 50mg daily Will update labs. Verified that he uses [employer]. Aware to check results/results letter in [employer]. Will contact by phone if needed. Assessment & Plan (06/14/2024 9:50 AM CDT): Chronic problem. Controlled on current Fosinopril 20mg bid, carvedilol 25mg bid, chlorthalidone 50mg daily Assessment & Plan (02/16/2024 9:37 AM CDT): Chronic problem. Controlled on current Fosinopril 20mg bid, carvedilol 25mg bid, chlorthalidone 50mg daily Assessment & Plan (10/12/2023 9:38 AM ROLL TRUCKER): Chronic problem. Controlled on current Fosinopril 20mg bid, carvedilol 25mg bid, chlorthalidone 50mg daily Assessment & Plan (06/22/2023 10:16 AM CDT): Chronic problem. Controlled on current Fosinopril 20mg bid, carvedilol 25mg bid, chlorthalidone 50mg daily Will update labs. Verified that he uses mychart. Aware to check results/results letter in [employer]. Will contact by phone if needed. Assessment & Plan (09/09/2022 10:39 AM ROLL TRUCKER): Chronic, well controlled Importance of low salt diet and exercise were discussed Continue current meds, including Fosinopril Assessment & Plan (06/05/2022 9:53 AM CDT): Chronic problem, improved on recheck. No medication changes. Assessment & Plan (03/06/2022 1:59 PM CDT): Close to goal, and being managed by new molder setter. No changes. Assessment & Plan (11/14/2021 11:53 [...] reviewed. Assessment & Plan (08/09/2020 1:41 PM ROLL TRUCKER): Goal blood pressure is less than 140/85 [...] plan. Assessment & Plan (09/27/2019 12:27 PM ROLL TRUCKER): Goal blood pressure is less than 140/85 [...] medications. Assessment & Plan (08/18/2018 3:11 PM ROLL TRUCKER): Controlled on current medications. Assessment & Plan (05/13/2018 3:23 PM CDT): Continue follow up with Dr. Madrid. Check occasional home BP. Assessment & Plan (01/28/2018 10:45 AM CDT): Goal blood pressure is less than 140/85 Low salt diet recommended Daily aerobic exercise Continue current meds, including KAVON-I or ARB Diabetic polyneuropathy asso ciated with type 2 diabetes mellitus 12/03/2017 Assessment & Plan (10/14/2024 10:30 AM ROLL TRUCKER): Chronic problem. Reviewed foot care; needs to lotion daily. Aware to check feet nightly, not to go barefoot. Assessment & Plan (06/14/2024 9:50 AM CDT): Chronic problem. Aware to check feet nightly & not to go barefoot. Assessment & Plan (02/16/2024 9:38 AM CDT): Chronic problem. Aware to check feet nightly & not to go barefoot. Assessment & Plan (10/12/2023 9:38 AM ROLL TRUCKER): Chronic problem. Aware to check feet nightly & not to go barefoot. Assessment & Plan (06/22/2023 10:29 AM CDT): Chronic problem. Aware to check feet nightly & not to go barefoot. Assessment & Plan (09/09/2022 10:39 AM ROLL TRUCKER): Foot care discussed Assessment & Plan (01/28/2018 10:43 AM CDT): Your Hba1c today was: Lab Results Component Value Date HGBA1C 7.1 01/28/2018 meaning a 3 month average sugar of : 150 Your goal hba1c is under 7.0 to prevent alf diabetes complications ( eye , kidney and [...] DMII WO CMP UNCNTRLD Assessment & Plan (10/14/2024 10:42 AM ROLL TRUCKER): Chronic problem. A1c improved from 7.3% 06/14/24 to now 6.9%. Persistent highs during daytime hours. -Increase morning humalog from 60 to 60 units. Current medications: Metformin XR 1000mg twice daily with meals Trulicity 3 mg weekly Humalog 50/50 65 units every morning & 35 units after dinner Will update labs. Verified that he uses mychart. Aware to check results/results letter in [employer]. Will contact by phone if needed. UTD on DM eye exam (08/2023 [facility]). Strive for regular [...] skin breakdown and infection. Assessment & Plan (06/14/2024 9:57 AM CDT): Chronic problem. A1c improved from 7.7% 02/16/24 to now 7.3%. persistent highs during daytime hours. -Increase morning humalog from 55 to 60 units. Current medications: Metformin XR 1000mg twice daily with meals Trulicity 1.5 mg weekly Humalog 50/50 60units every morning & 35 units after dinner UTD on labs. UTD on DM eye exam (08/2023 [facility]). Strive for regular [...] labs. UTD on DM eye exam (08/2023 [facility]). Strive for regular [...] infection. Assessment & Plan (10/12/2023 9:57 AM ROLL TRUCKER): Chronic problem. A1c near goal; improved from [...] labs. UTD on DM eye exam (08/2023 [facility]). Scheduled again 11/2023. Strive for [...] Will update labs. Verified that he uses mychart. Aware to check results/results letter in [employer]. Will contact by phone if needed. Please [...] infection. Assessment & Plan (09/09/2022 10:41 AM ROLL TRUCKER): Hba1c was Lab Results Component Value Date [...] Foot care reviewed. Recommend follow up with ship erector. Assessment & Plan (08/09/2020 1:42 PM ROLL TRUCKER): Hba1c was Lab Results Component Value Date [...] discussed. Assessment & Plan (09/27/2019 12:26 PM ROLL TRUCKER): Hba1c was Lab Results Component Value Date [...] goal hba1c is under 7.0 to prevent alf diabetes complications ( eye , kidney and [...] butter crackers or cheese. See a foot . Assessment & Plan (08/18/2018 3:10 PM ROLL TRUCKER): A1c 7.3. Some variation in BG is [...] goal hba1c is under 7.0 to prevent alf diabetes complications ( eye , kidney and [...] staff should administer the PHQ-9) 0 04/11/2021 Sex and Gender Information Value Date Recorded Sex Assigned at Not on file Legal Sex Male 12:30 AM ROLL TRUCKER Gender Identity Male 12/11/2023 3:15 PM CDT Sexual Orientation Straight 12/11/2023 3: 15 PM CDT Last Filed Vital Signs Vital Sign Reading Time Taken Comments Blood Pressure 134/78 10/14/2024 10:02 AM ROLL TRUCKER Pulse 78 10/14/2024 10:02 AM ROLL TRUCKER Temperature 36.7 C (98 F) 12/24/2022 1:36 PM CDT Respiratory Rate 16 10/14/2024 10:02 AM ROLL TRUCKER Oxygen Saturation 100% 12/24/2022 7:18 PM CDT Inhaled Oxygen Concentration - - Weight 137.9 kg (304 lb) 10/14/2024 10:02 AM ROLL TRUCKER Height 195.6 cm (6' 5.01 ) 10/14/2024 10:02 AM C Body Mass Index 36.04 10/14/2024 10:02 AM ROLL TRUCKER Plan of Treatment Not on file Procedures Procedure Name Priority Date/Time Associated Diagnosis Comments ALBUMIN CREATININE RATIO, URINE Routine 10/19/2024 8:03 AM ROLL TRUCKER Type 2 diabetes mellitus with hyperglycemia, with long-term current use of insulin (HCC) LIPID PANEL Routine 10/19/2024 8:03 AM ROLL TRUCKER Type 2 diabetes mellitus with hyperglycemia, with long-term current use of insulin (HCC) Hyperlipidemia associated with type 2 diabetes mellitus (HCC) POCT GLUCOSE Routine 10/14/2024 10:05 AM ROLL TRUCKER Type 2 diabetes mellitus with hyperglycemia, with long-term current use of insulin (HCC) POCT HEMOGLOBIN A1C Routine 10/14/2024 1 0:05 AM ROLL TRUCKER Type 2 diabetes mellitus with hyperglycemia, with long-term current use of insulin (HCC) PARATHYROID HORMONE-INTACT Routine 09/29/2024 9:47 AM ROLL TRUCKER COMPREHENSIVE METABOLIC PANEL Routine 09/29/2024 DIABETES EYE EXAM Routine 09/15/2023 from Last 3 Months or Most Recently Relevant to Health Maintenance Results * Albumin Creatinine Ratio, Urine (10/19/2024 8:03 AM ROLL TRUCKER) Pathologist [facility] Creatinine, ur 161 20 - 320 mg/dL [facility] Microalbumin, ur 0.5 See Note: mg/dL [facility] Comment: Reference Range: Reference Range Not established Microalbumin/creat ratio 3 <30 mg/g creat [facility] Comment: The ADA defines abnormalities in albumin excretion as follows: Albuminuria Category Result (mg/g creatinine) Normal to Mildly increased <30 Moderately increased 30-299 Severely increased > OR = 300 The ADA recommends that at least two of three specimens collected within a 3-6 month period be abnormal before considering a patient to be within a diagnostic category. Urine 10/19/2024 8:03 AM ROLL TRUCKER 10/19/2024 8:03 AM ROLL TRUCKER Narrative [facility] - 10/20/2024 4:47 AM ROLL TRUCKER FASTING:YES FASTING: YES us Ivonne Worley FANCY SEWER LAB URINE ORDERABLES Josy l Result Performing Organization Address City/[facility]/ZIP Co de Phone Number [facility] [address] [phone] * (ABNORMAL) Lipid panel (10/19/2024 8:03 AM ROLL TRUCKER) Pathologist [facility] Cholesterol 117 <200 mg/dL [facility] HDL 34(L) > OR = 40 mg/dL [facility] Triglycerides 115 <150 mg/dL [facility] LDL 63 mg/dL (calc) [facility] Comment: Reference [...] LDL-C. Tylor CONN et al. ADDISON. 2013;310(19): 7919-7697 (http://education.[employer]/faq/GPT419) Chol/HDL ratio 3.4 <5.0 (calc) [facility] Non-HDL, (LDL+VLDL) 83 <130 mg/dL (calc) [facility] Comment: For patients with diabetes plus 1 major ASCVD risk factor, treating to a non-HDL-C goal of <100 mg/dL (LDL-C of <70 mg/dL) is considered a therapeutic option. Blood 10/19/2024 8:03 AM ROLL TRUCKER 10/19/2024 8:03 AM ROLL TRUCKER Narrative [facility] - 10/20/2024 4:47 AM ROLL TRUCKER FASTING:YES FASTING: YES us Ivonne Worley NP LAB BLOOD ORDERABLES Josy l Result Performing Organization Address City/[facility]/ZIP Co de Phone Number [facility] [address] [phone] * (ABNORMAL) POCT hemoglobin A1c (10/14/2024 10:05 AM ROLL TRUCKER) Hemoglobin A1C, POC 6.9 4.0 - 5.6 % Blood 10/14/2024 10:0 5 AM ROLL TRUCKER us Ivonne Worley FANCY SEWER POINT OF CARE TEST ORDERA BLES Final Result * (ABNORMAL) POCT glucose (10/14/2024 10:05 AM ROLL TRUCKER) Glucose Blood, POC 157 mg/dL Blood 10/14/2024 10:0 5 AM ROLL TRUCKER us Ivonnebonny Worley FANCY SEWER POINT OF CARE TEST ORDERA BLES Final Result * Parathyroid Hormone-Intact (09/29/2024 9:47 AM ROLL TRUCKER) Blood 09/29/2024 9:47 AM ROLL TRUCKER Impressions EXTERNAL LAB - 09/29/2024 9:47 AM ROLL TRUCKER Result: 17 (16-77) us Historical Provider LAB BLOOD ORDERABLES Edit ed Result - Final EXTERNAL LAB * (ABNORMAL) Comprehensive metabolic panel (09/29/2024) SCRIBED Sodium 138 138 - 146 mmol/L EXTERNAL LAB SCRIBED Potassium 3.8 3.5 - 4.9 mmol/L EXTERNAL LAB SCRIBED Chloride 100 98 - 109 mmol/L EXTERNAL LAB SCRIBED Carbon Dioxide 25 22 - 30 mmol/L EXTERNAL LAB SCRIBED Anion Gap 9 4 - 12 mmol/L EXTERNAL LAB SCRIBED Urea Nitrogen (BUN) 17 8 - 26 mg/dl EXTERNAL LAB SCRIBED Creatinine 1.80(A) 0.8 - 1.5 mg/dl EXTERNAL LAB SCRIBED Glucose 201(A) 70 - 105 mg/dl EXTERNAL LAB SCRIBED Calcium 9.0 8.4 - 10.2 mg/dl EXTERNAL LAB SCRIBED Bilirubin 0.9 0.2 - 1.3 mg/dl EXTERNAL LAB SCRIBED Plasma Protein 7.0 6.3 - 8.2 g/dl EXTERNAL LAB SCRIBED Albumin 3.9 3.5 - 5.1 g/dl EXTERNAL LAB SCRIBED Alkaline Phosphatase 68 38 - 126 Units/L EXTERNAL LAB SCRIBED Alanine Transaminase (ALT) 17 6 - 50 Units/L EXTERNAL LAB SCRIBED Aspartate Transaminase (AST) 29 17 - 59 Units/L EXTERNAL LAB SCRIBED eGFR in NonAfrican [place]ymra[place] 37 >59 - NA EXTERNAL LAB Blood 09/29/2024 Historical Provider LAB BLOOD ORDERABLES Edit ed Result - Final EXTERNAL LAB * (ABNORMAL) DIABETES EYE EXAM (09/15/2023) 09/15/2023 Historical Provider HEALTH MAINTENANCE Edited Result - Final from Last 3 Months or Most Recently Relevant to Health Maintenance Insurance [address] [place] [id number] MEDICARE SOLUTIONS MEDICARE SOLUTIONS Care Teams Bending Roll Operator Relationship Specialty Start Date End Date Magno Thompson MD [address] [place] [address] PCP - General 08/10/07 [place] [address] [address] [facility] [address], [place] [address] Consulting Physician Endocrinology Diabetes & Metabolism 09/27/19 Khang Robledo, OD [address] [place], [place] [id number] Consulting Physician Ophthalmology 09/27/19 Victorino Richter OD [address] [place] [address] Optometry 08/09/20
--- OUTSIDE RECORDS SUMMARY | 2024-11-08 17:53 | XMS_ITS | Clinical Summary ---
Author Organization [facility] [place] [address] Address [address] [place] [address] Care Team Providers Care Microbiology Lab Technician Name Role Phone Magno Thompson MD Primary Care Prov ider Jaci Dickinson MD Unavailable Khang Robledo OD Unavailable [phone] Victorino Richter OD Unavailable Allergies Active Allergy [...] 1 tablet by mouth daily Active coenzyme O13-vuerutz E 100-5 mg-unit capsule Take 100 mg [...] 06/22/2023 Assessment & Plan (10/14/2024 10:30 AM MARKETING SERVICES REP): Chronic problem. Managed by Dr Cruz Wu; sees him every 6 mos. Nephropathy: On KAVON-I / ARB s : Yes. Fosinopril 20mg bid. Last MA: 07/22/23 Last creat/GFR: 07/22/23 GFR=44, CR=1.67 Will update labs. Verified that he uses [employer]. Aware to check results/results letter in [employer]Ed. Will contact by phone if needed. Assessment [...] CR=1.67. Assessment & Plan (10/12/2023 9:52 AM MARKETING SERVICES REP): Chronic problem. Managed by Dr Cruz Wu; sees him every 6 mos. Last creat/GFR: 07/22/23 GFR=44, CR=1.67. Assessment & Plan (06/22/2023 10:31 AM CDT): Chronic problem. Managed by Dr Cruz Wu. Morbid (severe) obesity due to excess calories 0 09/09/2022 Hyperlipidemia associated with type 2 diabetes deanne soriano 01/28/2018 Assessment & Plan (10/14/2024 10:30 AM MARKETING SERVICES REP): Chronic problem. Currently taking Atorvastatin 20mg & fenofibrate 160mg. Last lipid panel: 07/22/23 LDL=81, HY=176. Rosuvastatin caused muscle weakness. Will update labs. Verified that he uses [employer]. Aware to check results/results letter in [employer]. Will contact by phone if needed. Assessment & Plan (06/14/2024 9:58 AM CDT): Chronic problem. Currently taking Atorvastatin 20mg & fenofibrate 160mg. Last lipid panel: 07/22/23 LDL=81, JM=615. Rosuvastatin caused muscle weakness. Assessment & Plan (02/16/2024 9:58 AM CDT): Chronic problem. Currently taking Rosuvastatin 20mg & fenofibrate 160mg. Last lipid panel: 07/22/23 LDL=81, UY=864. Assessment & Plan (10/12/2023 9:37 AM MARKETING SERVICES REP): Chronic problem. Currently taking Pravastatin 40mg & fenofibrate 160mg. Last lipid panel: 07/22/23 LDL=81, YL=771. Assessment & Plan (06/22/2023 10:17 AM CDT): Chronic problem. Controlled on current Pravastatin 40mg & fenofibrate 160mg. Last lipid panel: 03/06/22 LDL=69, IL=438. Will update labs. Verified that he uses [employer]. Aware to check results/results letter in [employer]Ed. Will contact by phone if needed. Assessment & Plan (09/09/2022 10:39 AM MARKETING SERVICES REP): Chronic, well controlled Low fat Low cholesterol [...] therapy. Assessment & Plan (08/09/2020 1:41 PM MARKETING SERVICES REP): Goal of treatment , LDL cholesterol less [...] well. Assessment & Plan (09/27/2019 12:26 PM MARKETING SERVICES REP): Goal of treatment , LDL cholesterol less [...] therapy Assessment & Plan (08/18/2018 3:11 PM MARKETING SERVICES REP): At goal on current medications. Assessment & [...] 01/28/2018 Assessment & Plan (10/14/2024 10:31 AM MARKETING SERVICES REP): Chronic problem. Controlled on current Fosinopril 20mg bid, carvedilol 25mg bid, chlorthalidone 50mg daily Will update labs. Verified that he uses mychart. Aware to check results/results letter in [employer]. Will contact by phone if needed. Assessment & Plan (06/14/2024 9:50 AM CDT): Chronic problem. Controlled on current Fosinopril 20mg bid, carvedilol 25mg bid, chlorthalidone 50mg daily Assessment & Plan (02/16/2024 9:37 AM CDT): Chronic problem. Controlled on current Fosinopril 20mg bid, carvedilol 25mg bid, chlorthalidone 50mg daily Assessment & Plan (10/12/2023 9:38 AM MARKETING SERVICES REP): Chronic problem. Controlled on current Fosinopril 20mg bid, carvedilol 25mg bid, chlorthalidone 50mg daily Assessment & Plan (06/22/2023 10:16 AM CDT): Chronic problem. Controlled on current Fosinopril 20mg bid, carvedilol 25mg bid, chlorthalidone 50mg daily Will update labs. Verified that he uses mychart. Aware to check results/results letter in [employer]. Will contact by phone if needed. Assessment & Plan (09/09/2022 10:39 AM MARKETING SERVICES REP): Chronic, well controlled Importance of low salt diet and exercise were discussed Continue current meds, including Fosinopril Assessment & Plan (06/05/2022 9:53 AM CDT): Chronic problem, improved on recheck. No medication changes. Assessment & Plan (03/06/2022 1:59 PM CDT): Close to goal, and being managed by new theater technician. No changes. Assessment & Plan (11/14/2021 11:53 [...] reviewed. Assessment & Plan (08/09/2020 1:41 PM MARKETING SERVICES REP): Goal blood pressure is less than 140/85 [...] plan. Assessment & Plan (09/27/2019 12:27 PM MARKETING SERVICES REP): Goal blood pressure is less than 140/85 [...] medications. Assessment & Plan (08/18/2018 3:11 PM MARKETING SERVICES REP): Controlled on current medications. Assessment & Plan [...] 12/03/2017 Assessment & Plan (10/14/2024 10:30 AM MARKETING SERVICES REP): Chronic problem. Reviewed foot care; needs to lotion daily. Aware to check feet nightly, not to go barefoot. Assessment & Plan (06/14/2024 9:50 AM CDT): Chronic problem. Aware to check feet nightly & not to go barefoot. Assessment & Plan (02/16/2024 9:38 AM CDT): Chronic problem. Aware to check feet nightly & not to go barefoot. Assessment & Plan (10/12/2023 9:38 AM MARKETING SERVICES REP): Chronic problem. Aware to check feet nightly & not to go barefoot. Assessment & Plan (06/22/2023 10:29 AM CDT): Chronic problem. Aware to check feet nightly & not to go barefoot. Assessment & Plan (09/09/2022 10:39 AM MARKETING SERVICES REP): Foot care discussed Assessment & Plan (01/28/2018 10:43 AM CDT): Your Hba1c today was: Lab Results Component Value Date HGBA1C 7.1 01/28/2018 meaning a 3 month average sugar of : 150 Your goal hba1c is under 7.0 to prevent termite exterminator diabetes complications ( eye , kidney and [...] UNCNTRLD Assessment & Plan (10/14/2024 10:42 AM MARKETING SERVICES REP): Chronic problem. A1c improved from 7.3% 06/14/24 to now 6.9%. Persistent highs during daytime hours. -Increase morning humalog from 60 to 60 units. Current medications: Metformin XR 1000mg twice daily with meals Trulicity 3 mg weekly Humalog 50/50 65 units every morning & 35 units after dinner Will update labs. Verified that he uses [employer]. Aware to check results/results letter in [employer]Ed. Will contact by phone if needed. UTD on DM eye exam (08/2023 [facility]). Strive for regular exercise [...] labs. UTD on DM eye exam (08/2023 [facility]). Strive for regular exercise [...] labs. UTD on DM eye exam (08/2023 [facility]). Strive for regular exercise [...] infection. Assessment & Plan (10/12/2023 9:57 AM MARKETING SERVICES REP): Chronic problem. A1c near goal; improved from [...] labs. UTD on DM eye exam (08/2023 [facility]). Scheduled again 11/2023. Strive [...] Will update labs. Verified that he uses [employer]. Aware to check results/results letter in OpenEd. Will contact by phone if needed. Please [...] infection. Assessment & Plan (09/09/2022 10:41 AM MARKETING SERVICES REP): Hba1c was Lab Results Component Value Date [...] Foot care reviewed. Recommend follow up with dross skimmer. Assessment & Plan (08/09/2020 1:42 PM MARKETING SERVICES REP): Hba1c was Lab Results Component Value Date [...] discussed. Assessment & Plan (09/27/2019 12:26 PM MARKETING SERVICES REP): Hba1c was Lab Results Component Value Date [...] goal hba1c is under 7.0 to prevent fpc diabetes complications ( eye , kidney and [...] . Assessment & Plan (08/18/2018 3:10 PM MARKETING SERVICES REP): A1c 7.3. Some variation in BG is [...] goal hba1c is under 7.0 to prevent fpc diabetes complications ( eye , kidney and [...] 12/03/2017 01/28/2018 BMI 40.0-44.9, adult 12/03/2017 018 Encounters Date Type Department Care Team Description 10/21/2024 Results Follow-Up [facility] Endocr[facility]ology [address] [place] [phone] Ivonne Worley NP 10/14/2024 10:00 AM MARKETING SERVICES REP Office Visit [facility] [address] [place] [phone] Ivonne Worley, JEFRY Type 2 diabetes mellitus with hyperglycemia, with long-term current use of insulin (HCC) (Primary Dx); Hypertension associated with diabetes (HCC); Hyperlipidemia associated with type 2 diabetes mellitus (HCC); Diabetic polyneuropathy associated with type 2 diabetes mellitus (HCC); Type 2 diabetes mellitus with stage 3a chronic kidney disease, with long-term current use of insulin (HCC) 10/14/2024 Orders Only [facility] [address] [place] [phone] Provider, MD Mayela 10/14/2024 Telephone [facility] [address] [place] [phone] Ivonne Worley NP Lab orders from Last 3 Months Surgical History Surgery Date Site/Laterality Comments REPLACEMENT [...] on file Legal Sex Male 12:30 AM MARKETING SERVICES REP Gender Identity Male 12/11/2023 3:15 PM CDT Sexual Orientation Straight 12/11/2023 3: 15 PM CDT Obstetrics History Last Filed Vital Signs Vital Sign Reading Time Taken Comments Blood Pressure 134/78 10/14/2024 10:02 AM MARKETING SERVICES REP Pulse 78 10/14/2024 10:02 AM MARKETING SERVICES REP Temperature 36.7 C (98 F) 12/24/2022 1:36 PM CDT Respiratory Rate 16 10/14/2024 10:02 AM MARKETING SERVICES REP Oxygen Saturation 100% 12/24/2022 7:18 PM CDT Inhaled Oxygen Concentration - - Weight 137.9 kg (304 lb) 10/14/2024 10:02 AM MARKETING SERVICES REP Height 195.6 cm (6' 5.01 ) 10/14/2024 10:02 AM Natali DONIS Body Mass Index 36.04 10/14/2024 10:02 AM MARKETING SERVICES REP Plan of Treatment Health Maintenance Due Date Last Done Comments Colon Cancer Screening-Colonoscopy 1955 Fall Risk Assessment 1955 Hepatitis C Screening 1955 DTaP/Tdap/Td Vaccine (1 - Tdap) 1964 Hepatitis B Screening 11/28/1971 Well Visit 65+ 2018 Zoster Vaccine (2 of 2) 12/30/2019 11/04/2019 Depression Screening 04/11/2022 04/11/2021, 08/09/2020, 09/27/2019, Additional history exists Influenza Vaccine (#1) 2024 06/17/2022 Dilated Eye Exam 09/15/2024 09/15/2023, , 05/28/2021, Additional history exists Hemoglobin A1C 04/13/2025 10/14/2024, 05/25, 02/16/2024, Additional history exists eGFR 09/29/2025 09/29/2024, 06/25, 12/24/2022, Additional history exists Foot Exam 10/14/2025 10/14/2024, 05/26, 11/14/2021, Additional history exists Albumin Creatinine Ratio, Urine 10/19/2025 10/19/2024, 07/22/2023, 11/20/2021 Lipid Panel 10/19/2025 10/19/2024, 06/25, 03/06/2022, Additional history exists Pneumococcal vaccine 65+ Completed 11/04/2019, 10/22 Procedures Procedure Name Priority Date/Time Associated Diagnosis Comments ALBUMIN CREATININE RATIO, URINE Routine 10/19/2024 8:03 AM MARKETING SERVICES REP Type 2 diabetes mellitus with hyperglycemia, with long-term current use of insulin (HCC) LIPID PANEL Routine 10/19/2024 8:03 AM MARKETING SERVICES REP Type 2 diabetes mellitus with hyperglycemia, with long-term current use of insulin (HCC) Hyperlipidemia associated with type 2 diabetes mellitus (HCC) POCT GLUCOSE Routine 10/14/2024 10:05 AM MARKETING SERVICES REP Type 2 diabetes mellitus with hyperglycemia, with long-term current use of insulin (HCC) POCT HEMOGLOBIN A1C Routine 10/14/2024 1 0:05 AM MARKETING SERVICES REP Type 2 diabetes mellitus with hyperglycemia, with long-term current use of insulin (HCC) PARATHYROID HORMONE-INTACT Routine 09/29/2024 9:47 AM MARKETING SERVICES REP COMPREHENSIVE METABOLIC PANEL Routine 09/29/2024 DIABETES EYE EXAM Routine 09/15/2023 from Last 3 Months or Most Recently Relevant to Health Maintenance Results * Albumin Creatinine Ratio, Urine (10/19/2024 8:03 AM MARKETING SERVICES REP) Pathologist [facility] Creatinine, ur 161 20 - 320 mg/dL [...] a diagnostic category. Urine 10/19/2024 8:03 AM MARKETING SERVICES REP 10/19/2024 8:03 AM MARKETING SERVICES REP Narrative [facility] - 10/20/2024 4:47 AM MARKETING SERVICES REP FASTING:YES FASTING: YES us Ivonne Worley NP LAB URINE ORDERABLES Josy l Result [facility] [address] [phone] * (ABNORMAL) Lipid panel (10/19/2024 8:03 AM MARKETING SERVICES REP) Cholesterol 117 <200 mg/dL [facility] [...] LDL-C. Tylor SS et al. ADDISON. 2013;310(19): 8058-3617 (http://education.[employer]/faq/CUG807) Chol/HDL ratio 3.4 <5.0 (calc) [facility] Non-HDL, (LDL+VLDL) 83 <130 mg/dL (calc) [facility] Comment: For patients with diabetes plus 1 major ASCVD risk factor, treating to a non-HDL-C goal of <100 mg/dL (LDL-C of <70 mg/dL) is considered a therapeutic option. Blood 10/19/2024 8:03 AM MARKETING SERVICES REP 10/19/2024 8:03 AM MARKETING SERVICES REP Narrative [facility] - 10/20/2024 4:47 AM MARKETING SERVICES REP FASTING:YES FASTING: YES us Ivonne Worley NP LAB BLOOD ORDERABLES Josy l Result [facility] [address] [facility] [place] [address] * (ABNORMAL) POCT hemoglobin A1c (10/14/2024 10:05 AM MARKETING SERVICES REP) Pathologist [facility] Hemoglobin A1C, POC 6.9 4.0 - 5.6 % Blood 10/14/2024 10:0 5 AM MARKETING SERVICES REP us Ivonne R. Schleeper ACCOUNTANT PROPERTY POINT OF CARE TEST ORDERA BLES Final Result * (ABNORMAL) POCT glucose (10/14/2024 10:05 AM MARKETING SERVICES REP) Pathologist [facility] Glucose Blood, POC 157 mg/dL Blood 10/14/2024 10:0 5 AM MARKETING SERVICES REP Ivonne Worley ACCOUNTANT PROPERTY POINT OF CARE TEST ORDERA BLES Final Result * Parathyroid Hormone-Intact (09/29/2024 9:47 AM MARKETING SERVICES REP) Blood 09/29/2024 9:47 AM MARKETING SERVICES REP Impressions EXTERNAL LAB - 09/29/2024 9:47 AM MARKETING SERVICES REP Result: 17 (16-77) us Historical Provider LAB BLOOD ORDERABLES Edit ed Result - Final EXTERNAL LAB * (ABNORMAL) Comprehensive metabolic panel (09/29/2024) Pathologist [facility] SCRIBED Sodium 138 138 - 146 mmol/L [...] Units/L EXTERNAL LAB SCRIBED eGFR in NonAfrican Taiwanese 37 >59 - NA EXTERNAL LAB Blood 09/29/2024 Historical Provider LAB BLOOD ORDERABLES Edit ed Result - Final EXTERNAL LAB * (ABNORMAL) DIABETES EYE EXAM (09/15/2023) 09/15/2023 Historical Provider HEALTH MAINTENANCE Edited Result - Final from Last 3 Months or Most Recently Relevant to Health Maintenance Insurance [employer] Care Teams Microbiology Lab Technician Relationship Specialty Start Date End Date Magno Thompson MD [address] [place] [address] PCP - General 08/10/07 [place] [address] [address] [facility] [address] [place] [address] Consulting Physician Endocrinology Diabetes & Metabolism 09/27/19 Khang Robledo, OD [address], [place] [id number] Consulting Physician Ophthalmology 09/27/19 Victorino Richter OD [address] [place] [address] Optometry 08/09/20
--- OUTSIDE RECORDS SUMMARY | 2024-11-08 17:53 | XMS_ITS | Clinical Summary ---
Author Organization [facility] Address [address] [place] [address] Phone Care Team Providers Care User Acceptance Tester Name Role Phone Magno Marr MD Primary Care Provider [phone] Allergies Active Allergy Reactions Criticality Noted Date [...] day 10/10/2020 Active Lancets (OneTouch Delica Plus [id number]) misc USE TO TEST THREE TIMES DAILY [...] Comments Blood Pressure 136/70 07/30/2022 8:43 AM WINCH RUNNER Pulse 72 07/30/2022 8:43 AM WINCH RUNNER Temperature 36.8 C (98.2 F) 07/30/2022 8:43 AM WINCH RUNNER Respiratory Rate - - Oxygen Saturation - - Inhaled Oxygen Concentration - - Weight 138 kg (305 lb) 07/30/2022 8:43 AM WINCH RUNNER Height 195.6 cm (6' 5 ) 07/30/2022 8:43 AM WINCH RUNNER Body Mass Index 36.17 07/30/2022 8:43 AM WINCH RUNNER Plan of Treatment Health Maintenance Due Date Last Done Comments Pneumococcal PPSV23/PCV13 65 + Years / High and Highest Risk (1 of 4 - PCV) 11/28/1959 Diabetic Foot Exam 11/28/1963 Ophthalmology Exam 11/28/1963 Influenza Vaccine (#1) 2024 06/17/2022 Care Teams User Acceptance Tester Relationship Specialty Start Date End Date Magno Marr MD [address] [address] PCP - General Family Medicine 12/12/21
--- OUTSIDE RECORDS SUMMARY | 2024-11-08 17:53 | XMS_ITS | Clinical Summary ---
Author Organization [facility] Address [address] [place] [address] Care Team Providers Care Recreation Leader Name Role Phone Magno Thompson MD Primary Care Provider [phone] Social History Tobacco Use Types Packs/Day Years Used Date Smoking Tobacco: Never Assessed Sex and Gender Information Value Date Recorded Sex Assigned at Not on file Legal Sex Male 8:11 PM CDT Gender Identity Not on file Sexual Orientation Not on file Last Filed Vital Signs Vital Sign Reading Time Taken Comments Blood Pressure 178/82 08/01/2013 9:19 AM VIDEO ARCADE MANAGER Pulse 100 08/01/2013 9:19 AM VIDEO ARCADE MANAGER Temperature - - Respiratory Rate - - Oxygen Saturation - - Inhaled Oxygen Concentration - - Weight 156.5 kg (345 lb) 08/01/2013 9:19 AM VIDEO ARCADE MANAGER Height 195.6 cm (6' 5 ) 08/01/2013 9:19 AM VIDEO ARCADE MANAGER Body Mass Index 40.91 08/01/2013 9:19 AM VIDEO ARCADE MANAGER Plan of Treatment Health Maintenance Due Date [...] Priority Date/Time Associated Diagnosis Comments COLONOSCOPY Routine VIDEO ARCADE MANAGER from Last 3 Months or Most Recently Relevant to Health Maintenance Results * Colonoscopy ( VIDEO ARCADE MANAGER) Narrative [facility] TO EPIC CONVERSION - VIDEO ARCADE MANAGER Documented hx of procedure Procedure Note Dennise Buck MD - 06/27/2018 Documented hx of procedure us Generic Conversion Md BUCK GI PROCEDURE ORDERABLES Final Result [facility] TO EPIC CONVERSION from Last 3 Months or Most Recently Relevant to Health Maintenance Insurance [facility] Care Teams Recreation Leader Relationship Specialty Start Date End Date Magno Thompson MD [address] [address] PCP - General 06/08/13
== END 2024-11-08 16:13 | disposition home or self-care (01) ==
PROVIDERS: PCP Family Medicine Adolescent Medicine; Visit Provider Internal Medicine Nephrology
DX: M79.89 Other specified soft tissue disorders (principal); N18.32 Chronic kidney disease, stage 3b
CPT/HCPCS: 93971